=== PATIENT | female | born 1935 | race Two or more races ===

== ENCOUNTER 2016-07-09 15:56 | Observation (INO) | payer MEDICARE, BC ==
[2016-07-09] MEDS ORDERED: SODIUM CHLORIDE 0.9% 1,000 ML IV STA (16:22)
[2016-07-09] MEDS ORDERED: ALBUTEROL NEBULIZED 2.5 MG/3 ML INHALATION STA (16:22)
[2016-07-09] MEDS ORDERED: methylPREDNISolone SOD SUCCI 125 MG/2 ML VIAL IV STA (16:22)
[2016-07-09] MEDS ORDERED: IPRATROPIUM-ALBUTEROL 3 ML NEB INHALATION STA (16:22)
[2016-07-09] MEDS ORDERED: LEVOFLOXACIN 500 MG TAB PO STA (16:24)
--- NOTE | 2016-07-09 16:25 | ED ---
SOB HPI - General Chief Complaint: Shortness of Breath Stated Complaint: Coughing/Dr Sent Time Seen by Provider: 07/09/16 16:15 Source: patient, family Mode of arrival: wheelchair Limitations: no limitations - History of Present Illness Initial Comments: 81 years old female presents with the cough congestion fever coughing up phlegm and runny nose for the last 1 week he got worse this morning she wanted to go see her family doctor in the directed her to come to the ER. She denies any chest pain but she does feel some chest pain when she takes a deep breath she also has a history of COPD she has smoked approximately 50 years ago she quit years ago she also has a history of a spot on her lung she denies any history of heart attacks or any stents or any cardiac intervention at this point review of system is unremarkable otherwise - Related Data Home Medications Medication Instructions Recorded Confirmed Cholecalciferol [Vitamin D3] 2,000 unit PO DAILY 02/25/14 07/09/16 Losartan Potassium [Cozaar] 100 mg PO DAILY 02/25/14 07/09/16 Propylene Glycol/Peg 400/Pf 1 drop BOTH EYES BID PRN 05/07/15 07/09/16 [Systane 0.3-0.4% Eye Drops] Fluticasone Propionate [Flonase 1 - 2 spray EA NOSTRIL DAILY PRN 11/24/15 Allergy Relief] Glimepiride [Amaryl] 1 mg PO DAILY 11/24/15 07/09/16 rOPINIRole HCL [Requip] 0.5 - 1 mg PO HS PRN 07/09/16 07/09/16 Previous Rx's Medication Instructions Recorded traMADol HCL [Ultram] 50 mg PO Q6HR PRN #90 tab 03/01/14 Allergies Allergy/AdvReac Type Severity Reaction Status Date / Time codeine Allergy Unknown Verified 07/09/16 17:14 hydrocodone Allergy Unknown Verified 07/09/16 17:14 hydrocodone bitartrate Allergy Unknown Verified 07/09/16 17:14 [From Vicodin] hydroxyzine Allergy Unknown Verified 07/09/16 17:14 hydroxyzine HCl Allergy Unknown Verified 07/09/16 17:14 [From Vistaril] hydroxyzine pamoate Allergy Unknown Verified 07/09/16 17:14 [From Vistaril] influenza virus vaccine, Allergy Swelling Verified 07/09/16 17:14 specific [Influenza Virus Vacc,Specific] morphine Allergy Unknown Verified 07/09/16 17:14 Penicillins Allergy Rash/Hives Verified 07/09/16 17:14 propoxyphene napsylate Allergy Unknown Verified 07/09/16 17:14 [From Darvocet-N 100] Sulfa (Sulfonamide Allergy Swelling Verified 07/09/16 17:14 Antibiotics) tetanus and diphtheria Allergy Swelling Verified 07/09/16 17:14 toxoids [Tetanus&Diphtheria Toxoid] Review of Systems ROS Statement: Those systems with pertinent positive or pertinent negative responses have been documented in the HPI. ROS Other: All systems not noted in ROS Statement are negative. Past Medical History Past Medical History: COPD, Diabetes Mellitus, Hypertension, Osteoarthritis (OA) Additional Past Medical History / Comment(s): sciatica osteoporosis kidney stones. history of sepsis, nodule on RUL lung History of Any Multi-Drug Resistant Organisms: None Reported Past Surgical History: Back Surgery, Orthopedic Surgery Additional Past Surgical History / Comment(s): Right shoulder and left knee, lt hip-plate and screws surgery, Cataract surgery. part of colon removed related to diverticulitis, ear surgery and ureter stents, bladder suspension Past Anesthesia/Blood Transfusion Reactions: No Reported Reaction Past Psychological History: No Psychological Hx Reported Smoking Status: Former smoker Past Alcohol Use History: None Reported Additional Past Alcohol Use History / Comment(s): STARTED SMOKING AT AGE 13, QUIT 2010 SMOKED 1 PACK PER WEEK. Past Drug Use History: None Reported - Past Family History Sister(s) Family Medical History: Cancer, Renal Disease Additional Family Medical History / Comment(s): sister had dialysis, sister possibly had stomach ca Father Family Medical History: No Reported History Additional Family Medical History / Comment(s): PT WAS ORPHANED DOES'NT KNOW ANY OF PARENTS HX General Exam - General Exam Comments Initial Comments: General: The patient is awake and alert, in mild respiratory distress, GCS is 15. Skin: Skin is warm and dry and no rashes or lesions are noted. Eye: Pupils are equal, round and reactive to light, extra-ocular movements are intact; there is normal conjunctiva bilaterally. Ears, nose, mouth and throat: There are moist mucous membranes and no oral lesions. Neck: The neck is supple, there is no tenderness Cardiovascular: There is a regular rate and rhythm. No murmur, rub or gallop is appreciated. Respiratory: To auscultation bilateral, she is wheezing, crackles at the bases poor air change in general Gastrointestinal: Soft, non-distended, non-tender abdomen without masses or organomegaly noted. There is no rebound or guarding present. Bowel sounds are unremarkable. Back: There is no tenderness to palpation in the midline. There is no obvious deformity. Musculoskeletal: Normal ROM, no tenderness, There is no pedal edema. There is no calf tenderness or swelling. No cords were appreciated. Neurological: CN II-XII intact, Cranial nerves III through XII are intact. There are no obvious motor or sensory deficits. Coordination appears grossly intact. Speech is normal. Psychiatric: Cooperative, appropriate mood & affect, normal judgment. Limitations: no limitations Course Vital Signs 07/09/16 07/09/16 07/09/16 16:01 16:13 16:43 Temperature 100.4 F H 97.8 F Pulse Rate 93 81 83 Respiratory 18 16 Rate Blood Pressure 200/75 170/75 O2 Sat by Pulse 95 96 Oximetry 07/09/16 07/09/16 07/09/16 16:58 17:15 18:15 Temperature Pulse Rate 85 82 78 Respiratory 18 18 Rate Blood Pressure 158/69 158/66 O2 Sat by Pulse 99 98 Oximetry 07/09/16 07/09/16 07/09/16 19:15 20:30 21:00 Temperature Pulse Rate 80 72 89 Respiratory 18 20 20 Rate Blood Pressure 175/64 198/75 175/91 O2 Sat by Pulse 96 99 96 Oximetry She was reassessed S 19 420 she is complaining about pain in the epigastric area pain in the right upper and the left upper quadrant area she stating it seems like cramps in the abdomen abdomen ago and then numb CAT scan her abdomen as well CT CT chest angiogram 30 ordered to rule out the CT abdomen to She has a pleuritic chest pain with the elevated d-dimer and a chest x-ray showing a question of lump there or mass she needed a CT angiogram to rule out PE as well as as well as lung mass but she did not want contrast for her chest CT we did offer her the Solu-Medrol Pepcid and Benadryl prepped but term she did not want to proceed with CT considering her chest pain and all her PE will put in the hospital acquired and heparinize her Dr. Crook is her child care aide will consult him and that she be admitted to Dr. Vizcaino she agrees to that to the meantime she would have IV steroids and inhaled steroids and IV antibiotics Medical Decision Making - Lab Data Result diagrams: 07/09/16 16:27 07/09/16 16:27 Lab Results 07/09/16 07/09/16 07/09/16 Range/Units 16:27 16:27 16:27 WBC 5.5 (3.8-10.6) k/uL RBC 4.54 (3.80-5.40) m/uL Hgb 12.1 (11.4-16.0) gm/dL Hct 37.1 (34.0-46.0) % MCV 81.7 (80.0-100.0) fL MCH 26.7 (25.0-35.0) pg MCHC 32.7 (31.0-37.0) g/dL RDW 14.8 (11.5-15.5) % Plt Count 148 L (150-450) k/uL Neutrophils % 63 % Lymphocytes % 23 % Monocytes % 5 % Eosinophils % 4 % Basophils % 1 % Neutrophils # 3.4 (1.3-7.7) k/uL Lymphocytes # 1.2 (1.0-4.8) k/uL Monocytes # 0.3 (0-1.0) k/uL Eosinophils # 0.2 (0-0.7) k/uL Basophils # 0.1 (0-0.2) k/uL PT (9.0-12.0) sec INR (<1.1) APTT (22.0-30.0) sec D-Dimer (<0.60) mg/L FEU Sodium (137-145) mmol/L Potassium (3.5-5.1) mmol/L Chloride (98-107) mmol/L Carbon Dioxide (22-30) mmol/L Anion Gap mmol/L BUN (7-17) mg/dL Creatinine (0.52-1.04) mg/dL Est GFR (MDRD) Af Amer (>60 ml/min/1.73 sqM) Est GFR (MDRD) Non-Af (>60 ml/min/1.73 sqM) Glucose (74-99) mg/dL Calcium (8.4-10.2) mg/dL Total Bilirubin (0.2-1.3) mg/dL AST (14-36) U/L ALT (9-52) U/L Alkaline Phosphatase (38-126) U/L Total Creatine Kinase 125 (30-135) U/L CK-MB (CK-2) 1.3 (0.0-2.4) ng/mL CK-MB (CK-2) Rel Index 1.0 Troponin I <0.012 (0.000-0.034) ng/mL NT-Pro-B Natriuret Pep pg/mL Total Protein (6.3-8.2) g/dL Albumin (3.5-5.0) g/dL Influenza Type A RNA Not Detected (Not Detectd) Influenza Type B (PCR) Not Detected (Not Detectd) 07/09/16 07/09/16 07/09/16 Range/Units 16:27 16:27 16:27 WBC (3.8-10.6) k/uL RBC (3.80-5.40) m/uL Hgb (11.4-16.0) gm/dL Hct (34.0-46.0) % MCV (80.0-100.0) fL MCH (25.0-35.0) pg MCHC (31.0-37.0) g/dL RDW (11.5-15.5) % Plt Count (150-450) k/uL Neutrophils % % Lymphocytes % % Monocytes % % Eosinophils % % Basophils % % Neutrophils # (1.3-7.7) k/uL Lymphocytes # (1.0-4.8) k/uL Monocytes # (0-1.0) k/uL Eosinophils # (0-0.7) k/uL Basophils # (0-0.2) k/uL PT 10.0 (9.0-12.0) sec INR 1.0 (<1.1) APTT 23.4 (22.0-30.0) sec D-Dimer 0.77 H (<0.60) mg/L FEU Sodium 138 (137-145) mmol/L Potassium 4.1 (3.5-5.1) mmol/L Chloride 105 (98-107) mmol/L Carbon Dioxide 23 (22-30) mmol/L Anion Gap 10 mmol/L BUN 21 H (7-17) mg/dL Creatinine 0.80 (0.52-1.04) mg/dL Est GFR (MDRD) Af Amer >60 (>60 ml/min/1.73 sqM) Est GFR (MDRD) Non-Af >60 (>60 ml/min/1.73 sqM) Glucose 137 H (74-99) mg/dL Calcium 8.7 (8.4-10.2) mg/dL Total Bilirubin 0.5 (0.2-1.3) mg/dL AST 25 (14-36) U/L ALT 28 (9-52) U/L Alkaline Phosphatase 100 (38-126) U/L Total Creatine Kinase (30-135) U/L CK-MB (CK-2) (0.0-2.4) ng/mL CK-MB (CK-2) Rel Index Troponin I (0.000-0.034) ng/mL NT-Pro-B Natriuret Pep 266 pg/mL Total Protein 6.9 (6.3-8.2) g/dL Albumin 3.9 (3.5-5.0) g/dL Influenza Type A RNA (Not Detectd) Influenza Type B (PCR) (Not Detectd) Critical Care Time Total Critical Care Time: 45 Critical Care Time: Planing about shortness of breath or difficulty breathing she knew she had a history of not long, CBC is negative troponin and compress metabolic panel those are negative flu a and B are negative as well d-dimer is elevated she'll be sent for CT angiogram to rule out any PE and same time one evaluated her for now along mass lung mass seems to have enlarged on the plane x-ray films since he has smoked for a long time she be given some neb treatments as well as some antibiotics and some steroids and we will also been watching her blood pressure blood pressure systolic was 200 and she came in Disposition Clinical Impression: Hypertension, Chest pain, Fever, Elevated d-dimer, Lung mass Disposition: ADMITTED IP TO THIS HOSP Condition: Fair
[2016-07-09 16:44] LABS: Basophils # (A) 0.1 k/uL (0-0.2); Basophils % (A) 1 %; CH 26.2; CHCM 32.2; Eosinophils # (A) 0.2 k/uL (0-0.7); Eosinophils % (A) 4 %; HCT 37.1 % (34.0-46.0); HDW 2.67; HGB 12.1 gm/dL (11.4-16.0); Luc # (Auto) 0.21; Luc % (Auto) 4; Lymphocytes # (A) 1.2 k/uL (1.0-4.8); Lymphocytes % (A) 23 %; MCH 26.7 pg (25.0-35.0); MCHC 32.7 g/dL (31.0-37.0); MCV 81.7 fL (80.0-100.0); Mean Platelet Volume 8.6; Monocytes # (A) 0.3 k/uL (0-1.0); Monocytes % (A) 5 %; Neutrophils # (A) 3.4 k/uL (1.3-7.7); Neutrophils % (A) 63 %; RBC 4.54 m/uL (3.80-5.40); RDW 14.8 % (11.5-15.5); WBC 5.5 k/uL (3.8-10.6)
[2016-07-09 16:53] LABS: Partial Thromboplastin Time 23.4 sec (22.0-30.0)
[2016-07-09 16:59] LABS: ALT 28 U/L (9-52); AST 25 U/L (14-36); Alkaline Phosphatase 100 U/L (38-126); Anion Gap 10 mmol/L; Blood Urea Nitrogen 21 mg/dL (7-17); Calcium 8.7 mg/dL (8.4-10.2); Carbon Dioxide 23 mmol/L (22-30); Chloride 105 mmol/L (98-107); Glucose 137 mg/dL (74-99); Non-African American GFR(MDRD) >60 (>60 ml/min/1.73 sqM); Potassium 4.1 mmol/L (3.5-5.1); Sodium 138 mmol/L (137-145); Total Bilirubin 0.5 mg/dL (0.2-1.3); Total Protein 6.9 g/dL (6.3-8.2)
[2016-07-09 17:11] LABS: Creatine Kinase 125 U/L (30-135)
[2016-07-09 17:24] LABS: Creatine Kinase MB 1.3 ng/mL (0.0-2.4); Troponin I <0.012 ng/mL (0.000-0.034)
--- NOTE | 2016-07-09 17:32 | XR ---
EXAMINATION TYPE: XR chest 2V DATE OF EXAM: 07/09/2016 5:12 PM COMPARISON: 01/04/2016 HISTORY: Cough and congestion TECHNIQUE: Frontal and lateral views of the chest are obtained. FINDINGS: There is no heart failure. There is coarsening of pulmonary interstitial markings. There i s a right shoulder prosthesis. There is a irregular 3 cm mass in the right upper lobe. There are no h ilar masses. Thoracic aorta is atheromatous. There are chest leads. IMPRESSION: Right upper lobe mass is increased compared to last exam from 2 cm to 3 cm and suspiciou s for tumor. No heart failure. Pulmonary fibrotic changes.
[2016-07-09] MEDS ORDERED: RX INFO: IV CONTRAST WAS GIVEN 1 EACH MISC MISCELLANE PRN ×2 (18:51→19:42)
[2016-07-09] MEDS ORDERED: traMADol 50 MG TAB PO STA (18:53)
[2016-07-09] MEDS: HYDROmorphone 1 MG/ML 1 ML SYRINGE IVP SCH (20:35)
[2016-07-09] MEDS ORDERED: HEPARIN SODIUM,PORCINE 5,000 UNIT/ML 1 ML VIAL IV ONE (22:04)
[2016-07-09] MEDS ORDERED: ACETAMINOPHEN TAB 325 MG TAB PO PRN (22:04)
[2016-07-09] MEDS ORDERED: NITROGLYCERIN SL TABS 0.4 MG TAB SUBLINGUAL PRN (22:04)
[2016-07-09] MEDS ORDERED: HEPARIN SODIUM,PORCINE/D5W PMX 25,000 UNIT in DEXTROSE/WATER 1 500ML.BAG IV SCH (22:15)
[2016-07-09 23:03] LABS: Creatine Kinase 96 U/L (30-135)
[2016-07-09 23:17] LABS: Troponin I <0.012 ng/mL (0.000-0.034)
[2016-07-10 00:08] VITALS: BMI 37.0
[2016-07-10 04:18] VITALS: RESP 18
[2016-07-10 06:25] LABS: Creatine Kinase 100 U/L (30-135)
[2016-07-10 06:29] LABS: Cholesterol 141 mg/dL (<200); HDL Cholesterol 52 mg/dL (40-60); Triglycerides 39 mg/dL (<150)
[2016-07-10 06:38] LABS: Creatine Kinase MB 1.4 ng/mL (0.0-2.4); Troponin I <0.012 ng/mL (0.000-0.034)
[2016-07-10 08:51] LABS: Glucose,Whole Blood 181 mg/dL (75-99)
[2016-07-10] MEDS ORDERED: ASPIRIN 325 MG TAB PO SCH (09:00)
[2016-07-10] MEDS ORDERED: RX INFO: IV CONTRAST WAS GIVEN 1 EACH MISC MISCELLANE PRN (09:21)
[2016-07-10] MEDS ORDERED: ASPIRIN 81 MG CHEW PO SCH (09:23)
[2016-07-10] MEDS ORDERED: LOSARTAN 50 MG TAB PO SCH (09:29)
[2016-07-10] MEDS ORDERED: amLODIPine 5 MG TAB PO SCH (09:30)
--- NOTE | 2016-07-10 11:43 | CONS ---
DATE OF CONSULTATION: This is an 81-year-old lady with a history of hypertension, type 2 diabetes, osteoarthritis. Past history of smoking, which she quit 6 to 7 years ago. She came into the hospital with complaints of some abdominal discomfort, basically in the left upper quadrant and also in the right upper quadrant. The quality of pain is very atypical. Chest x-ray was performed which showed increase in the right upper lobe that has increased in size. She does not have any further chest pain. She also has an elevated d-dimer as well. She refused to have any CAT scan performed with contrast. She does not have allergy but felt that she may be allergic and therefore she refused CAT scan. There are some fibrotic changes. There is 3 cm right upper lobe mass which has increased and raises the possibility of malignancy. However, her pain in the abdomen is very atypical and this has resolved. Troponin levels are normal. She has significant risk factors in the form of type 2 diabetes and hypertension, past history of smoking, but there is no evidence to suggest any ongoing myocardial ischemia at this time. She is resting comfortably without symptoms. D-dimer is elevated up to 0.77 and she is now on heparin drip. PAST MEDICAL HISTORY: 1. History of chest pain, atypical in November. 2. Type 2 diabetes mellitus. 3. Hypertension. 4. Osteoarthritis. 5. History of lung mass which has increased in size. Patient is status post some orthopedic surgery, cataract surgery and also some back operation and diverticulitis and bowel resection, details are unclear. She has had some bladder suspension surgery as well. EKG reveals sinus mechanism with a right bundle and left anterior vesicular block. Laboratory data revealed the troponins are unremarkable. On examination, blood pressure is 170/80, pulse rate is 70 per minute, regular. HEENT: Unremarkable. Fundus was not examined by me. Neck is supple. There is no JVD. I do not hear a carotid bruit. Heart exam reveals S1, S2 with a soft short ejection systolic murmur at the right base with preserved second heart sound. Lungs are clear with scattered rhonchi. Abdomen is soft. Lower extremities reveal diminished pulses. No edema. Central nervous system grossly within normal limits. EKG revealed a sinus mechanism with a right bundle branch block, left anterior fascicular block. No acute changes. No new findings. Echocardiogram from November of 2015 revealed preserved systolic function, aortic valve sclerosis and no evidence of pulmonary hypertension. IMPRESSION: 1. Atypical chest pain. 2. Probable right upper lobe mass and rule out malignancy. 3. Hypertension. 4. Type 2 diabetes mellitus. 5. History of osteoarthritis. RECOMMENDATIONS: I am recommending a CT angiography to rule out pulmonary embolism and also get a better assessment of the right upper lobe mass. Patient's creatinine is normal and she has no documented allergy with contrast. I will also optimize her blood pressure control by adding Norvasc 5 mg daily to her regimen. No aggressive intervention necessary at this time. Once malignancy issues are resolved, she can have a stress test as an outpatient. I discussed my thoughts in detail with the patient and daughter. Thank you very much for the consult.
[2016-07-10 12:07] LABS: Glucose,Whole Blood 140 mg/dL (75-99)
[2016-07-10 12:31] VITALS: BP 166/71; TEMP 98
--- NOTE | 2016-07-10 13:14 | CT ---
CT CHEST FOR PULMONARY EMBOLISM. EXAMINATION TYPE: CT angio chest DATE OF EXAM: 07/10/2016 1:03 PM INDICATION: Patient has right upper lobe mass and possible PE CT DLP: 432.5 mGycm, Automated exposure control for dose reduction was used. CONTRAST: Patient injected with 100, wasted 43 ml mL of Omnipaque 350. COMPARISON: CT chest 02/15/2016 TECHNIQUE: CT of the chest is performed on a spiral scan at 2 mm thick sections. Study is performed with intravenous contrast timed for evaluation for pulmonary embolism. This will limit additional po rtions of the evaluation. 3-D MIP images reconstructed by the technologist are reviewed on the compu ter in the coronal and sagittal planes. FINDINGS: No persistent filling defects are evident to suggest an acute pulmonary embolism. There is a 1.2 cm lymph node in the right peribronchial region. Some right hilar adenopathy is presen t. The ascending aorta diameter at the level of the main pulmonary artery is 3.6 cm. The main pulmo nary artery diameter at the bifurcation is 2.8 cm. There is a 2.7 x 3.0 cm mass the right upper lobe. This has enlarged from February 2016 measuring 2.1 x 2.2 cm and appears more spiculated at this time. Findings are suspicious for neoplasm. Limited CT section through the upper abdomen. There is a moderate right hydronephrosis. This is an in terval change. IMPRESSIONS: 1. No acute pulmonary embolism. 2. Enlarging right upper lobe mass suspicious for neoplasm. 3. Developing right hydronephrosis
[2016-07-10 13:19] LABS: Hemoglobin A1C 7.8 % (4.2-6.1)
--- NOTE | 2016-07-10 13:27 | P.CNPUL ---
History of Present Illness Consult date: 07/10/16 Requesting physician: Leon Vizcaino Reason for consult: COPD, lung mass Chief complaint: Shortness of breath History of present illness: This is an 81-year-old female evaluated and examined today on the third floor. This patient is well known to our office. This patient came into the emergency room complaints of cough, congestion, fever and runny nose for the last week that had been getting worse. The patient's primary care physician directed her to come to the ER. The patient denies any continued chest pain but does feel some chest pain when she takes a deep breath. The patient also complains of epigastric pain that comes and goes. The patient did present with an elevated d -dimer of 0.77, however she declined to have a CT of her chest or abdomen. Patient did agree to have a chest x-ray and results revealed a right upper lobe mass of 2-3 cm which is suspicious for tumor. Patient was also to have hypertensive urgency while in the emergency room as well. Patient does have a significant history for COPD and has smoked approximately for 50 years and she quit last year. She has a known spot on her lung. Upon examination the patient is resting up in bed using 2 L of oxygen via nasal cannula. She continues to have a chronic cough however she has not been able to bring anything up. Review of Systems Routine point review of systems was completed and is negative unless noted in the HPI Past Medical History Past Medical History: COPD, Diabetes Mellitus, Hypertension, Osteoarthritis (OA) Additional Past Medical History / Comment(s): sciatica osteoporosis kidney stones. history of sepsis, nodule on RUL lung History of Any Multi-Drug Resistant Organisms: None Reported Past Surgical History: Back Surgery, Cholecystectomy, Orthopedic Surgery, Tonsillectomy Additional Past Surgical History / Comment(s): Right shoulder and bi lat knee, lt hip-plate and screws surgery, Cataract surgery. part of colon removed related to diverticulitis, ear surgery and ureter stents, bladder suspension Past Anesthesia/Blood Transfusion Reactions: No Reported Reaction Past Psychological History: No Psychological Hx Reported Smoking Status: Former smoker Past Alcohol Use History: None Reported Additional Past Alcohol Use History / Comment(s): STARTED SMOKING AT AGE 13, QUIT 2010 SMOKED 1 PACK PER WEEK. Past Drug Use History: None Reported - Past Family History Sister(s) Family Medical History: Cancer, Renal Disease Additional Family Medical History / Comment(s): sister had dialysis, sister possibly had stomach ca Father Family Medical History: No Reported History Additional Family Medical History / Comment(s): PT WAS ORPHANED DOES'NT KNOW ANY OF PARENTS HX Medications and Allergies Home Medications Medication Instructions Recorded Confirmed Type Cholecalciferol [Vitamin D3] 2,000 unit PO DAILY 02/25/14 07/09/16 History Losartan Potassium [Cozaar] 100 mg PO DAILY 02/25/14 07/09/16 History Propylene Glycol/Peg 400/Pf 1 drop BOTH EYES BID PRN 05/07/15 07/09/16 History [Systane 0.3-0.4% Eye Drops] Fluticasone Propionate [Flonase 1 - 2 spray EA NOSTRIL DAILY PRN 11/24/15 History Allergy Relief] Glimepiride [Amaryl] 1 mg PO DAILY 11/24/15 07/09/16 History rOPINIRole HCL [Requip] 0.5 - 1 mg PO HS PRN 07/09/16 07/09/16 History Allergies Allergy/AdvReac Type Severity Reaction Status Date / Time codeine Allergy Unknown Verified 07/09/16 17:14 hydrocodone Allergy Unknown Verified 07/09/16 17:14 hydrocodone bitartrate Allergy Unknown Verified 07/09/16 17:14 [From Vicodin] hydroxyzine Allergy Unknown Verified 07/09/16 17:14 hydroxyzine HCl Allergy Unknown Verified 07/09/16 17:14 [From Vistaril] hydroxyzine pamoate Allergy Unknown Verified 07/09/16 17:14 [From Vistaril] influenza virus vaccine, Allergy Swelling Verified 07/09/16 17:14 specific [Influenza Virus Vacc,Specific] morphine Allergy Unknown Verified 07/09/16 17:14 Penicillins Allergy Rash/Hives Verified 07/09/16 17:14 propoxyphene napsylate Allergy Unknown Verified 07/09/16 17:14 [From Darvocet-N 100] Sulfa (Sulfonamide Allergy Swelling Verified 07/09/16 17:14 Antibiotics) tetanus and diphtheria Allergy Swelling Verified 07/09/16 17:14 toxoids [Tetanus&Diphtheria Toxoid] Physical Exam Vitals: Vital Signs Temp Pulse Pulse Resp BP BP BP 07/10/16 08:00 97.6 F 84 18 198/82 07/10/16 04:12 97.7 F 66 18 189/77 07/10/16 04:00 66 18 07/10/16 00:15 190/78 07/10/16 00:00 97.7 F 62 16 210/86 07/09/16 23:03 98.4 F 76 18 170/85 Pulse Ox 07/10/16 08:00 97 07/10/16 04:12 94 L 07/10/16 04:00 07/10/16 00:15 07/10/16 00:00 97 07/09/16 23:03 96 Intake and Output 07/09/16 07/10/16 07/10/16 22:59 06:59 14:59 Other: # Voids 1 1 Weight 74.843 kg GENERAL EXAM: Alert, active, comfortable in no apparent distress. HEAD: Normocephalic. EYES: Normal reaction of pupils, equal size. NOSE: Clear with pink turbinates. THROAT: No erythema or exudates. NECK: No masses, no JVD. CHEST: No chest wall deformity. LUNGS: Equal air entry with some expiratory wheezing and rhonchi noted. Bilateral bases diminished CVS: S1 and S2 normal with no audible mumurs, regular rhythm. ABDOMEN: No hepatosplenomegaly, normal bowel sounds, no guarding or rigidity. EXTREMITIES: No edema noted, pedal pulses palpable. SKIN: No rashes CENTRAL NERVOUS SYSTEM: No focal deficits, tone is normal in all 4 extremities. Results - Laboratory Findings CBC and BMP: 07/09/16 16:27 07/09/16 16:27 PT/INR, D-dimer PT 10.0 sec (9.0-12.0) 07/09/16 16:27 INR 1.0 (<1.1) 07/09/16 16:27 D-Dimer 0.77 mg/L FEU (<0.60) H 07/09/16 16:27 Abnormal lab findings: Abnormal Labs 07/10/16 07/10/16 05:43 08:50 APTT 50.4 H POC Glucose (mg/dL) 181 H - Diagnostic Findings Chest x-ray: report reviewed, image reviewed Assessment and Plan Plan: Assessment Acute exacerbation of COPD Type 2 diabetes mellitus Hypertension Elevated d-dimer History of Pulmonary nodule which has increased in size Osteoarthritis Plan Medications have been reviewed and will be continued as ordered. We agree with cardiology that this patient should be encouraged to undergo a CTA to rule out pulmonary embolism. Continue with supportive care, nebulizer treatments, supplemental oxygen and pulmonary hygiene. We will continue to monitor labs/ results and adjust treatment as necessary. I performed an examination of the patient and discussed their management with the nurse practitioner. I have reviewed the nurse practitioner's note and agree with the documented findings and plan of care.
--- NOTE | 2016-07-10 13:39 | P.HPIM ---
History of Present Illness H&P Date: 07/10/16 Chief Complaint: Shortness of breath 81-year-old female presented on the day of admission to the emergency room with a chief complaint of developing cough coughing up secretions audibly congested.. Patient stated she took a deep breath or chest seemed to hurt. Patient does have a history of COPD smoked greater than 50 years stated that she quit years ago. Subsequently the patient was admitted to the services of the attending with a pulmonology and cardiology consultation requested. Patient 's d-dimer was elevated 2.7 patient underwent a CAT scan of the chest that showed no evidence of a pulmonary emboli. Patient does have a known right upper lobe mass which has been suspicious for a tumor the patient has refused in the past to have it worked up. The attending did discuss with the patient at the bedside about having hematology oncologist take a look and evaluate the right upper lobe mass. Patient refused. The CAT scan of the chest showed that the mass has increased in size from February 2016 and findings are suspicious for a neoplastic. The mass has grown from a 2.7 x 3 cm mass it was 2.2. Again the patient refused to have this evaluated this admission. Patient was anxious to be discharged home Patient was seen by cardiology service. Cardiac enzymes 3 sets were negative. Chest pain was felt to be atypical. The chest x-ray in the emergency room did show an increase in the right upper lobe mass from prior x-ray. Patient continued to refuse to have any workup done at this time. Cardiology indicated that there was no evidence to suggest any ongoing myocardial ischemia at this time. The d-dimer was 0.77. Cardiology indicated that from a cardiac perspective once the malignancy issues are resolved patient have stress test done in the outpatient setting. They added Norvasc 5 mg daily in attempt to optimize her blood pressure. Control Review of Systems Essentially unremarkable except as mentioned in the present illness Past Medical History Past Medical History: COPD, Diabetes Mellitus, Hypertension, Osteoarthritis (OA) Additional Past Medical History / Comment(s): sciatica osteoporosis kidney stones. history of sepsis, nodule on RUL lung History of Any Multi-Drug Resistant Organisms: None Reported Past Surgical History: Back Surgery, Cholecystectomy, Orthopedic Surgery, Tonsillectomy Additional Past Surgical History / Comment(s): Right shoulder and bi lat knee, lt hip-plate and screws surgery, Cataract surgery. part of colon removed related to diverticulitis, ear surgery and ureter stents, bladder suspension Past Anesthesia/Blood Transfusion Reactions: No Reported Reaction Past Psychological History: No Psychological Hx Reported Smoking Status: Former smoker Past Alcohol Use History: None Reported Additional Past Alcohol Use History / Comment(s): STARTED SMOKING AT AGE 13, QUIT 2010 SMOKED 1 PACK PER WEEK. Past Drug Use History: None Reported - Past Family History Sister(s) Family Medical History: Cancer, Renal Disease Additional Family Medical History / Comment(s): sister had dialysis, sister possibly had stomach ca Father Family Medical History: No Reported History Additional Family Medical History / Comment(s): PT WAS ORPHANED DOES'NT KNOW ANY OF PARENTS HX Medications and Allergies Home Medications Medication Instructions Recorded Confirmed Type Cholecalciferol [Vitamin D3] 2,000 unit PO DAILY 02/25/14 07/09/16 History Losartan Potassium [Cozaar] 100 mg PO DAILY 02/25/14 07/09/16 History Propylene Glycol/Peg 400/Pf 1 drop BOTH EYES BID PRN 05/07/15 07/09/16 History [Systane 0.3-0.4% Eye Drops] Fluticasone Propionate [Flonase 1 - 2 spray EA NOSTRIL DAILY PRN 11/24/15 History Allergy Relief] Glimepiride [Amaryl] 1 mg PO DAILY 11/24/15 07/09/16 History rOPINIRole HCL [Requip] 0.5 - 1 mg PO HS PRN 07/09/16 07/09/16 History Allergies Allergy/AdvReac Type Severity Reaction Status Date / Time codeine Allergy Unknown Verified 07/09/16 17:14 hydrocodone Allergy Unknown Verified 07/09/16 17:14 hydrocodone bitartrate Allergy Unknown Verified 07/09/16 17:14 [From Vicodin] hydroxyzine Allergy Unknown Verified 07/09/16 17:14 hydroxyzine HCl Allergy Unknown Verified 07/09/16 17:14 [From Vistaril] hydroxyzine pamoate Allergy Unknown Verified 07/09/16 17:14 [From Vistaril] influenza virus vaccine, Allergy Swelling Verified 07/09/16 17:14 specific [Influenza Virus Vacc,Specific] morphine Allergy Unknown Verified 07/09/16 17:14 Penicillins Allergy Rash/Hives Verified 07/09/16 17:14 propoxyphene napsylate Allergy Unknown Verified 07/09/16 17:14 [From Darvocet-N 100] Sulfa (Sulfonamide Allergy Swelling Verified 07/09/16 17:14 Antibiotics) tetanus and diphtheria Allergy Swelling Verified 07/09/16 17:14 toxoids [Tetanus&Diphtheria Toxoid] Physical Exam Vitals: Vital Signs Temp Pulse Pulse Resp BP BP BP 07/10/16 12:00 98.0 F 75 18 166/71 07/10/16 08:00 97.6 F 84 18 198/82 07/10/16 04:12 97.7 F 66 18 189/77 07/10/16 04:00 66 18 07/10/16 00:15 190/78 07/10/16 00:00 97.7 F 62 16 210/86 07/09/16 23:03 98.4 F 76 18 170/85 Pulse Ox 07/10/16 12:00 95 07/10/16 08:00 97 07/10/16 04:12 94 L 07/10/16 04:00 07/10/16 00:15 07/10/16 00:00 97 07/09/16 23:03 96 Intake and Output 07/09/16 07/10/16 07/10/16 22:59 06:59 14:59 Other: # Voids 1 1 Weight 74.843 kg GENERAL APPEARANCE: 81-year-old patient is alert, oriented 3, in no acute distress. VITAL SIGNS: Reviewed HEENT: Head is normocephalic and atraumatic. Pupils are equal and reactive. The nares are patent. Oropharynx is clear without lesions. NECK: Supple without lymphadenopathy. Traches midline. HEART: S1, S2. Regular rate and rhythm. No murmur noted denying chest pain LUNGS: No crackles or wheezes are heard. Diminished at the bases otherwise adequate air movement no cough noted ABDOMEN: Soft, nontender, nondistended with good bowel sounds. No peritoneal signs. No palpable organomegaly or masses. EXTREMITIES: Normal skin color and turgor. No cyanosis, rash, ulceration, clubbing or edema. Radial pedal pulses are 2/4 bilaterally. NEUROLOGICAL: No focal deficits. Strength and sensation are grossly intact. Results CBC & Chem 7: 07/09/16 16:27 07/09/16 16:27 Labs: Abnormal Lab Results - Last 24 Hours (Table) 07/10/16 07/10/16 07/10/16 Range/Units 05:43 08:50 12:05 APTT 50.4 H (22.0-30.0) sec POC Glucose (mg/dL) 181 H 140 H (75-99) mg/dL Thrombosis Risk Factor Assmnt - Choose All That Apply Each Factor Represents 1 point: Abnormal pulmonary function (COPD) Each Risk Factor Represents 3 Points: Age 75 years or older, History of DVT/PE Thrombosis Risk Factor Assessment Total Risk Factor Score: 7 Thrombosis Risk Factor Assessment Level: High Risk Assessment and Plan Plan: Impression Present on admission shortness of breath suspect due to an acute exacerbation of COPD. Present on admission elevated d-dimer 0.77 CAT scan of the chest showed no evidence of a pulmonary emboli History of nicotine dependency greater than a 50 year history quit within the last 10 years History of osteoarthritis A known Right upper lobe mass increased in size per CAT scan of the chest patient has refused biopsy and workup in the past c omputed tomography scan of the chest and abdomen shows a moderate right hydronephrosis interval change Atypical chest pain with negative cardiac enzymes no evidence of myocardial ischemia Accelerated hypertension present on admission Obesity BMI 37 Plan Continue recommendations by cardiology Norvasc 5 mg daily from a cardiac perspective to be discharged home with see in the outpatient setting when the malignancy issue has been addressed Make appointment for an outpatient urologist to evaluate the right hydronephrosis interval change has seen the past Continue with recommendations by pulmonology Resume home meds as appropriate Set up for home O2 if needed Set up for home nebulizer The above dictated assessment and findings were discussed with dr moreira . Impression and the plan of care have been dictated as directed. Sol Noyola nurse practitioner acting as a scribe for dr moreira
--- NOTE | 2016-07-10 13:48 | P.DS ---
Providers Date of admission: 07/09/16 22:04 Expected date of discharge: 07/10/16 Attending physician: Leon Vizcaino Consults: 07/10/16 09:20 Consult Physician Stat Consulting Provider: Satnam Mireles Consult Reason/Comments: lung mass rul Do you want consulting provider notified?: Yes Primary care physician: Leon Vizcaino [facility] Course: 81-year-old female presented on the day of admission to the emergency room with a chief complaint of developing cough coughing up secretions audibly congested.. Patient stated she took a deep breath or chest seemed to hurt. Patient does have a history of COPD smoked greater than 50 years stated that she quit years ago. Subsequently the patient was admitted to the services of the attending with a pulmonology and cardiology consultation requested. Patient 's d-dimer was elevated 2.7 patient underwent a CAT scan of the chest that showed no evidence of a pulmonary emboli. Patient does have a known right upper lobe mass which has been suspicious for a tumor the patient has refused in the past to have it worked up. The attending did discuss with the patient at the bedside about having hematology oncologist take a look and evaluate the right upper lobe mass. Patient refused. The CAT scan of the chest showed that the mass has increased in size from February 2016 and findings are suspicious for a neoplastic. The mass has grown from a 2.7 x 3 cm mass it was 2.2. Again the patient refused to have this evaluated this admission. Patient was anxious to be discharged home Patient was seen by cardiology service. Cardiac enzymes 3 sets were negative. Chest pain was felt to be atypical. The chest x-ray in the emergency room did show an increase in the right upper lobe mass from prior x-ray. Patient continued to refuse to have any workup done at this time. Cardiology indicated that there was no evidence to suggest any ongoing myocardial ischemia at this time. The d-dimer was 0.77. Cardiology indicated that from a cardiac perspective once the malignancy issues are resolved patient have stress test done in the outpatient setting. They added Norvasc 5 mg daily in attempt to optimize her blood pressure.Control Impression Present on admission shortness of breath suspect due to an acute exacerbation of COPD. Present on admission elevated d-dimer 0.77 CAT scan of the chest showed no evidence of a pulmonary emboli History of nicotine dependency greater than a 50 year history quit within the last 10 years History of osteoarthritis A known Right upper lobe mass increased in size per CAT scan of the chest patient has refused biopsy and workup in the past c omputed tomography scan of the chest and abdomen shows a moderate right hydronephrosis interval change Atypical chest pain with negative cardiac enzymes no evidence of myocardial ischemia Accelerated hypertension present on admission Obesity BMI 37 The above dictated assessment and findings were discussed with dr vizcaino . Impression and the plan of care have been dictated as directed. Sol oNyola nurse practitioner acting as a scribe for dr vizcaino Patient Condition at Discharge: Fair Plan - Discharge Summary New Discharge Prescriptions: Budesonide-Formot 160-4.5 Mcg [Symbicort 160-4.5 Mcg Inhaler] 2 puff INHALATION BID #1 inhaler Ipratropium-Albuterol Nebulize [Duoneb 0.5 mg-3 mg/3 ml Soln] 3 ml INHALATION QID #120 neb amLODIPine [Norvasc] 5 mg PO HS #30 tab Discharge Medication List Cholecalciferol [Vitamin D3] 2,000 unit PO DAILY 02/25/14 [History] Losartan Potassium [Cozaar] 100 mg PO DAILY 02/25/14 [History] traMADol HCL [Ultram] 50 mg PO Q6HR PRN #90 tab 03/01/14 [Rx] Propylene Glycol/Peg 400/Pf [Systane 0.3-0.4% Eye Drops] 1 drop BOTH EYES BID PRN 05/07/15 [History] Fluticasone Propionate [Flonase Allergy Relief] 1 - 2 spray EA NOSTRIL DAILY PRN 11/24/15 [History] Glimepiride [Amaryl] 1 mg PO DAILY 11/24/15 [History] rOPINIRole HCL [Requip] 0.5 - 1 mg PO HS PRN 07/09/16 [History] Budesonide-Formot 160-4.5 Mcg [Symbicort 160-4.5 Mcg Inhaler] 2 puff INHALATION BID #1 inhaler 07/10/16 [Rx] Ipratropium-Albuterol Nebulize [Duoneb 0.5 mg-3 mg/3 ml Soln] 3 ml INHALATION QID #120 neb 07/10/16 [Rx] amLODIPine [Norvasc] 5 mg PO HS #30 tab 07/10/16 [Rx] Follow up Appointment(s)/Referral(s): Leon Vizcaino MD [Primary Care Provider] - 1-2 days Jose Estrella MD [STAFF PHYSICIAN] - 1 Week (Office closed this afternoon (07/10/16 ) and patient will have to call the office to set an appointment) Satnam Mireles MD [STAFF PHYSICIAN] - 1 Week (Office will call to set up an appointment) Benito Lord MD [STAFF PHYSICIAN] - 1 Week Patient Instructions/Handouts: Chest Pain (GEN) Discharge Disposition: HOME SELF-CARE
[2016-07-10] MEDS ORDERED: IPRATROPIUM-ALBUTEROL 3 ML NEB INHALATION STA (14:10)
[2016-07-10 15:31] VITALS: PULSE 80
--- NOTE | 2016-07-10 17:23 | HP ---
DATE OF ADMISSION: 07/09/2016 CHIEF COMPLAINT: Chest pain, cough, congestion. HISTORY OF PRESENT ILLNESS: This is another admission for this 81-year-old white female who has a long-standing history of hypertension, type 2 oea-oqhrllp-ydyzqhtxp diabetes mellitus, COPD and heart failure. She has been coughing up some of late came to the emergency room because of the lung congestion. She thought she had a cold. She has had no fever, chills, cough, hemoptysis, palpitations, et cetera. Chest x-ray in the ER suggested that the right upper lobe mass has gotten a little bit bigger. This was diagnosed number of years ago and she has refused evaluation and treatment. REVIEW OF SYSTEMS: She has had no neurologic problems, problems with vision or hearing, hemoptysis, orthopnea, PND, abdominal pain, hematemesis, melena, hematochezia, colitis, diverticulosis, diverticulitis, hemorrhoids, jaundice, hepatitis, cirrhosis, hematuria, frequency, urgency, diabetes, etc. Past medical history, family history and personal and social histories reveals SHE IS ALLERGIC TO VICODIN, PENICILLIN, DARVOCET, PNEUMOVAX, LASIX, CALCIUM CHANNEL BLOCKERS, VETO INHIBITORS, MORPHINE, FLU VACCINE. She is currently on: 1. Requip 0.5 at bedtime p.r.n. 2. Compazine p.r.n. 3. Ibuprofen 800 mg q.i.d. 4. Amaryl 1 mg once a day. 5. Vitamin D3 2000 units a day. 6. Cozaar 100 mg once a day. 7. Tramadol 50 mg q.6h p.r.n. The remainder of her history is unremarkable. She has had appendectomy and cholecystectomy as well as T&A. She used to smoke but she does not any longer. She has been treated for congestive heart failure in the past. PHYSICAL EXAMINATION: VITAL SIGNS: Blood pressure is 164/66, pulse 100, respirations 16, and temperature 98.3. GENERAL: She appeared to be slightly pale and in no acute distress. SKIN: Skin color is normal. Skin is warm and dry. Lymph nodes are not enlarged. Head, ears, eyes, nose, mouth, and throat were normal. NECK: Neck veins not distended. Thyroid is not enlarged. Chest is clear. Cardiac exam is normal. ABDOMEN: Soft, nontender. EXTREMITIES: Normal. Neurologically, she is intact. She was admitted to the hospital with diagnoses: 1. Bronchitis. 2. History of chronic obstructive pulmonary disease. 3. Right upper lobe lung mass - enlarging. 4. Type II insulin dependent diabetes mellitus. PLAN: 1. Bed rest. 2. IV fluids. 3. Updrafts. 4. Oncology referral.
--- NOTE | 2016-07-10 19:14 | PN ---
DATE OF SERVICE: 07/10/2016 CHIEF COMPLAINT: Chest pain. HISTORY OF PRESENT ILLNESS: This lady is doing fairly well but she still has a little bit of chest congestion. This is probably due to bronchitis. She was told that the mass in the right upper lobe was enlarging and now, she would like to have it evaluated. PHYSICAL EXAMINATION: She has occasional rales and rhonchi bilaterally. CARDIAC: Normal soft, nontender. IMPRESSION: 1. Bronchitis. 2. Bronchopneumonia. 3. Right upper lobe mass - enlarging. 4. Hypertension. 5. History congestive heart failure. 6. Diabetes. PLAN: Continue on current program and have her re-evaluated by oncology.
[2016-07-10] MEDS ORDERED: BUDESONIDE 1 MG/2 ML NEBU INHALATION SCH (20:00)
--- NOTE | 2016-07-14 18:05 | PN ---
DATE OF SERVICE: 07/10/2016 CHIEF COMPLAINT: Cough, congestion, shortness of breath and right upper lobe lung mass. HISTORY OF PRESENT ILLNESS: This lady is doing well and chest is clear and breathing is much improved. She has had to be seen Oncology for the right upper lobe enlarging lung mass. It is planned that they will see her today and that she may be able to discharged if not necessary for any further tests. ( ) The cardiac exam is normal. The abdomen is soft, nontender. IMPRESSION: 1. Bronchitis. 2. Pneumonitis. 3. Diffuse chronic obstructive pulmonary disease. 4. Type 2 sup-yuqyert-hwfhpaxhz diabetes mellitus. 5. History congestive heart failure. 6. Right upper lobe lung mass. PLAN: Await recommendations from Oncology and she can probably go home later today and this will be arranged by the nurse practitioner.
== END 2016-07-10 15:45 | disposition home or self-care (01) ==
LOC: EC 15:56 → 3OBS 22:04
PROVIDERS: ADMIT Family Medicine; ATTEND Family Medicine
DX: J44.1 Chronic obstructive pulmonary disease with (acute) exacerbation (principal); J44.0 Chronic obstructive pulmonary disease with (acute) lower respiratory infection; J18.0 Bronchopneumonia, unspecified organism; E11.9 Type 2 diabetes mellitus without complications; E66.9 Obesity, unspecified; Z68.37 Body mass index [BMI] 37.0-37.9, adult; I11.0 Hypertensive heart disease with heart failure; I16.0 Hypertensive urgency; I35.8 Other nonrheumatic aortic valve disorders; I50.9 Heart failure, unspecified; N13.30 Unspecified hydronephrosis; Z79.84 Long term (current) use of oral hypoglycemic drugs; Z79.899 Other long term (current) drug therapy; Z87.442 Personal history of urinary calculi; Z87.891 Personal history of nicotine dependence; Z79.51 Long term (current) use of inhaled steroids; Z88.5 Allergy status to narcotic agent; Z88.0 Allergy status to penicillin; Z88.2 Allergy status to sulfonamides; Z88.7 Allergy status to serum and vaccine; Z88.8 Allergy status to other drugs, medicaments and biological substances; R91.8 Other nonspecific abnormal finding of lung field; M19.90 Unspecified osteoarthritis, unspecified site
CPT/HCPCS: 96365 ×2; 96375 ×2; 96376 ×2; 96361 ×7; 99291 ×2; 36415; 94640 ×2; 93005; 85379; 83880; 80061; 80053; 83036; 82550 ×2; 82553 ×2; 84484 ×2; 85025; 85610; 85730 ×2; 87502; 71020; 71275; G0378 ×2; J1644 ×2; J2930; Q9967; J0696; 96366; 96367

== ENCOUNTER → 2016-08-17 | Outpatient (CLI) | payer MEDICARE, BC ==
--- NOTE | 2016-08-19 22:23 | PE ---
EXAMINATION TYPE: PET CT fusion skull to thigh DATE OF EXAM: 08/17/2016 4:14 PM COMPARISON: CTA chest July 10, [address] HISTORY: Solitary pulmonary nodule TECHNIQUE: Following the intravenous administration of 14.18 mCi of F-18 FDG, whole body images are performed from the skull base to the midthigh. Images are reviewed on the computer in the coronal, a xial, and sagittal planes. Reconstructed rotating images are created on independent workstation and reviewed on the computer. A localization and attenuation correction CT is performed in conjunction with the PET scan. SCAN: Initial Scan FINDINGS: SKULL BASE AND NECK: No suspicious hypermetabolic uptake is seen in the neck. Symmetric uptake at [place] fabian of vocal cords is felt to reflect product of phonation. CHEST, MEDIASTINUM, AND HILAR REGION: Enlarging right upper lobe mass is redemonstrated measuring 3.3 x 2.6 cm on current study axial image 69, max SUV is 27.28. There is redemonstration of additional subcentimeter parenchymal nodules throughout the lungs bilater ally without abnormal hypermetabolic uptake, for reference two nodules are noted in the right lung on axial image 85. These can be followed. There are prominent subcentimeter right hilar lymph nodes near axial image 76, for reference 9 x 9 mm lymph node is seen max SUV is 3.85. Similar lymph node with mild hypermetabolic uptake right pericar inal region on axial image 74 is noted. There is diffuse increased uptake surrounding right shoulder prosthesis, inflammatory or infectious p rocess cannot be excluded. Clinical correlation advised. ABDOMEN AND PELVIS: No adrenal masses are noted. No suspicious hypermetabolic uptake is seen. OSSEOUS STRUCTURES: No suspicious hypermetabolic uptake is seen in the osseous structures. OTHER CT: There is air-fluid level in left maxillary sinus, correlate for sinusitis. There is densely calcified plaque at right carotid bulb. More moderate calcified plaque is seen at le ft carotid bulb. Advise carotid ultrasound follow-up. There is moderate calcified atherosclerotic change of aorta extending into pelvic branch vessels. There is cardiomegaly with coronary artery calcification present. Somewhat small appearing liver is noted. No splenomegaly is seen. Surgical clips near gastroesophagea l junction are seen causing streak artifact. There is fat replaced atrophy of the pancreas. There is some cortical thinning in both kidneys. There are several left-sided renal calculi with 1 cm lower pole calculus on the left on axial image 139 noted. Central calcifications are more likely vas cular in etiology versus renal calculi. There is fat-containing ventral wall hernia in the midline of the lower abdomen on axial image 161. T here is additional fat-containing hernia just right of midline on axial image 167. Uterus is surgically absent. Low lying bladder is present. There are scattered colonic diverticula most pronounced in the left and sigmoid colon. Osseous structures are demineralized. There is artifact from left proximal femur surgery through heal ed fracture. There are laminectomy defects and spinous process resection in the lumbar spine. There i s multilevel vertebroplasty present. IMPRESSION: 1. Abnormal hypermetabolic uptake correlates with enlarging right upper lung mass worrisome for neopl asm, some suspicious borderline lymph nodes right hilar and paracarinal region are noted. These obvi ous will make a higher stage if definitively positive.
== END | disposition home or self-care (01) ==
LOC: RADPETMAIN 13:56
PROVIDERS: ATTEND Internal Medicine Hematology & Oncology
DX: R91.8 Other nonspecific abnormal finding of lung field (principal); R91.1 Solitary pulmonary nodule; E11.9 Type 2 diabetes mellitus without complications
CPT/HCPCS: 78815; A9552

== ENCOUNTER 2016-12-16 08:35 | Emergency (ER) | payer MEDICARE, BC ==
[2016-12-16] MEDS ORDERED: ACETAMINOPHEN TAB 500 MG TAB PO STA (08:54)
[2016-12-16 08:55] LABS: Glucose,Whole Blood 166 mg/dL (75-99)
--- NOTE | 2016-12-16 09:13 | XR ---
Lumbar spine HISTORY: Low back pain 3 views of the lumbar spine Correlation to prior exam 11/06/2012 Multilevel vertebroplasty changes are again noted, some extrusion of material is noted anterior to th e L5 vertebral body as on prior exam, multilevel compression deformities as on prior exam at L1, L3, L4 and L5. Bone mineralization is reduced. There is a spinal curvature. Surgical clips present at the upper abdomen. There are dense vascular calcifications. Suspect left-sided nephrolithiasis. Multilev el spondylosis is present. There is some loss of disc height and intervertebral levels. Sclerosis pre sent in the posterior elements. Postop change noted to the left hip. IMPRESSION: Osteoporosis, osteoporotic compression fractures status post vertebroplasty at multiple l evels. Left-sided nephrolithiasis.
--- NOTE | 2016-12-16 09:26 | ED ---
General Adult HPI - General Chief complaint: Back Pain/Injury Stated complaint: BACK PAIN, HYPERGLYCEMIA Time Seen by Provider: 12/16/16 08:44 Source: patient, RN notes reviewed Mode of arrival: wheelchair Limitations: no limitations - History of Present Illness Initial comments: 81-year-old female presents to the emergency department with a chief complaint of back pain. Patient states that today she woke up with back pain. Patient states she did not take any medication for this could she does not like pills. Patient states that it radiates up the back. Patient denies any change to bowel or bladder habits or nausea vomiting. Patient states that it just hurts in her back. Family states that she does have lung cancer which she is choosing not to treat at this time. They were concerned due to the fact she continued to complain of the back pain so they thought that she should be evaluated.Patient denies any recent fever, chills, shortness of breath, chest pain, abdominal pain, nausea vomiting, numbness or tingling, dysuria or hematuria, constipation or diarrhea, headaches or visual changes, or any other current symptoms. - Related Data Home Medications Medication Instructions Recorded Confirmed Cholecalciferol [Vitamin D3] 2,000 unit PO DAILY 02/25/14 12/16/16 Losartan Potassium [Cozaar] 100 mg PO DAILY 02/25/14 12/16/16 Glimepiride [Amaryl] 1 mg PO DAILY 11/24/15 12/16/16 Furosemide [Lasix] 20 mg PO DAILY 12/16/16 12/16/16 Previous Rx's Medication Instructions Recorded Ciprofloxacin HCl [Cipro] 500 mg PO Q12HR #14 tablet 12/16/16 predniSONE 50 mg PO DAILY #5 tab 12/16/16 Allergies Allergy/AdvReac Type Severity Reaction Status Date / Time codeine Allergy Unknown Verified 12/16/16 09:44 hydrocodone Allergy Unknown Verified 12/16/16 09:44 hydrocodone bitartrate Allergy Unknown Verified 12/16/16 09:44 [From Vicodin] hydroxyzine Allergy Unknown Verified 12/16/16 09:44 hydroxyzine HCl Allergy Unknown Verified 12/16/16 09:44 [From Vistaril] hydroxyzine pamoate Allergy Unknown Verified 12/16/16 09:44 [From Vistaril] influenza virus vaccine, Allergy Swelling Verified 12/16/16 09:44 specific [Influenza Virus Vacc,Specific] morphine Allergy Unknown Verified 12/16/16 09:44 Penicillins Allergy Rash/Hives Verified 12/16/16 09:44 propoxyphene napsylate Allergy Unknown Verified 12/16/16 09:44 [From Darvocet-N 100] Sulfa (Sulfonamide Allergy Swelling Verified 12/16/16 09:44 Antibiotics) tetanus and diphtheria Allergy Swelling Verified 12/16/16 09:44 toxoids [Tetanus&Diphtheria Toxoid] Review of Systems ROS Statement: Those systems with pertinent positive or pertinent negative responses have been documented in the HPI. ROS Other: All systems not noted in ROS Statement are negative. Past Medical History Past Medical History: COPD, Diabetes Mellitus, Hypertension, Osteoarthritis (OA) Additional Past Medical History / Comment(s): sciatica osteoporosis kidney stones. history of sepsis, nodule on RUL lung History of Any Multi-Drug Resistant Organisms: None Reported Past Surgical History: Back Surgery, Cholecystectomy, Orthopedic Surgery, Tonsillectomy Additional Past Surgical History / Comment(s): Right shoulder and bi lat knee, lt hip-plate and screws surgery, Cataract surgery. part of colon removed related to diverticulitis, ear surgery and ureter stents, bladder suspension Past Anesthesia/Blood Transfusion Reactions: No Reported Reaction Past Psychological History: No Psychological Hx Reported Smoking Status: Former smoker Past Alcohol Use History: None Reported Past Drug Use History: None Reported - Past Family History Sister(s) Family Medical History: Cancer, Renal Disease Additional Family Medical History / Comment(s): sister had dialysis, sister possibly had stomach ca Father Family Medical History: No Reported History Additional Family Medical History / Comment(s): PT WAS ORPHANED DOES'NT KNOW ANY OF PARENTS HX General Exam - General Exam Comments Initial Comments: General: The patient is awake and alert, in no distress, and does not appear acutely ill. Eye: Pupils are equal, round and reactive to light, extra-ocular movements are intact; there is normal conjunctiva bilaterally. No signs of icterus. Ears, nose, mouth and throat: There are moist mucous membranes and no oral lesions. Neck: The neck is supple, there is no tenderness. Cardiovascular: There is a regular rate and rhythm. No murmur, rub or gallop is appreciated. Respiratory: Lungs are clear to auscultation, respirations are non-labored, breath sounds are equal. No wheezes, stridor, rales, or rhonchi. Gastrointestinal: Soft, non-distended, non-tender abdomen without masses or organomegaly noted. There is no rebound or guarding present. No CVA tenderness. Bowel sounds are unremarkable. Back: There is mild tenderness to palpation in the midline in the lower lumbar. There is no obvious deformity. No rashes noted. Musculoskeletal: Normal ROM, no tenderness, There is no pedal edema. There is no calf tenderness or swelling. Sensation intact. Pulses equal bilaterally 2+. Neurological: CN II-XII intact, There are no obvious motor or sensory deficits. Coordination appears grossly intact. Speech is normal. Skin: Skin is warm and dry and no rashes or lesions are noted. Psychiatric: Cooperative, appropriate mood & affect, normal judgment. Limitations: no limitations Course Vital Signs 12/16/16 08:36 Temperature 98.3 F Pulse Rate 89 Respiratory 20 Rate Blood Pressure 151/67 O2 Sat by Pulse 96 Oximetry Medical Decision Making - Medical Decision Making 81-year-old female presents emergency department with chief complaint of back pain.at this time CAT scan was reviewed. We did discuss the findings of this. As well as urinalysis. Patient does appear to have some chronic back changes that are causing most likely the back pain. This time there is no neurological deficit. This and we discussed taking Tylenol for the pain due to the fact patient does have interactions with. Medications as well as take the antibioticfor the UTI. We did discuss close follow-up with orthopedics. We did discuss return the patient family's questions. They stated they understood and the on agreement plan. All questions have been answered. They will be discharged. - Lab Data Lab Results 12/16/16 12/16/16 Range/Units 08:42 09:52 POC Glucose (mg/dL) 166 H (75-99) mg/dL POC Glu Advertisement Compositor ID Yesica Quiroz Urine Color Yellow Urine Appearance Cloudy H (Clear) Urine pH 6.5 (5.0-8.0) Ur Specific [place] 1.012 (1.001-1.035) Urine Protein Trace H (Negative) Urine Glucose (UA) Negative (Negative) Urine Ketones Negative (Negative) Urine Blood Moderate H (Negative) Urine Nitrite Negative (Negative) Urine Bilirubin Negative (Negative) Urine Urobilinogen 2.0 (<2.0) mg/dL Ur Leukocyte Esterase Large H (Negative) Urine RBC 37 H (0-5) /hpf Urine WBC 40 H (0-5) /hpf Urine WBC Clumps Few H (None) /hpf Ur Squamous Epith Cells 1 (0-4) /hpf Urine Bacteria Moderate H (None) /hpf Urine Mucus Rare H (None) /hpf - Radiology Data Radiology results: report reviewed, image reviewed Disposition Clinical Impression: Lumbar disc herniation, Degenerative disc disease, UTI (urinary tract infection ) Disposition: HOME SELF-CARE Condition: Stable Instructions: Chronic Back Pain (ED), Urinary Tract Infection in Women (ED) Additional Instructions: Please use medication as discussed. Please follow up with family doctor if symptoms have not improved over the next two days. Please return to the emergency room if your symptoms increase or worsen or for any other concerns. Prescriptions: Ciprofloxacin HCl [Cipro] 500 mg PO Q12HR #14 tablet predniSONE 50 mg PO DAILY #5 tab Referrals: Leon Vizcaino MD [Primary Care Provider] - 1-2 days Time of Disposition: 10:31
--- NOTE | 2016-12-16 10:09 | CT ---
EXAMINATION TYPE: CT lumbar spine wo con DATE OF EXAM: 12/16/2016 9:38 AM COMPARISON: 12/16/2016 lumbar spine radiographs and CT abdomen pelvis dated 11/24/2015. PET CT dated HISTORY: Patient complains of low back pain. Patient has history of 5 prior back surgeries. None re cent. CT DLP: 1037.7 mGycm Automated exposure control for dose reduction was used. Unenhanced CT of the lumbar spine was performed. Bone and soft tissue window settings are submitted as well as coronal and sagittal reconstructions. There is diffuse osseous demineralization, deeming evaluation for lytic lesions limited. Multiple lev el vertebral augmentation has been performed at L1, L3, L4, and L5. Extensive facet arthropathy is pr esent at L4-L5 and L5-S1 and to a lesser degree throughout the visualized thoracolumbar spine. Interv ertebral disc desiccation is seen at multiple levels within the lumbar spine. There is retropulsion o f the inferior endplate of L1 posteriorly into the spinal canal creating moderate spinal canal stenos is. Retropulsion measures 5 mm. Degenerative endplate changes seen of L2 with a concave deformity alt leonarda the anterior and posterior superior endplate maintained vertebral body height. There is a focal stenosis of the tortuous abdominal aorta at the level of L2 as there is a sharp curv ature at this level. Area of stenosis measures 1.4 cm and the terminal aorta proximal to this measure s 2.3 cm. Moderate circumferential atherosclerosis is seen of the abdominal aorta and its branches in cluding renal ostia and distal renal arteries. 1.1 cm left upper pole renal cyst and ill-defined midpole posterior renal cyst are appreciated. Large left renal sinus calculus is located within the renal pelvis measuring 1.4 cm additional 1.5 cm left lower pole renal cyst is seen as well as nonobstructing 5 mm calculus. Right renal sinus cyst is als o seen at the inferior pole. Few sigmoid diverticula are incidentally noted. There is pancreatic atrophy. No periaortic adenopathy is seen. L1-L2: There is intervertebral disc desiccation, right lateral disc herniation, and retropulsion of t he posterior inferior endplate of L1 into the spinal canal creates moderate spinal canal stenosis bes t seen on the sagittal image. Severe right neural foraminal narrowing and moderate left neural forami nal narrowing are present. Facet arthropathy and ligamentum flavum buckling are also noted. L2-L3: Intervertebral disc desiccation, broad-based disc bulge that is right eccentric, facet arthrop athy, and ligamentum flavum buckling are present resulting in moderate right and mild left neural for aminal narrowing. No spinal canal stenosis. L3-L4: Facet arthropathy, ligamentum flavum buckling, and broad-based disc bulge. Mild to moderate bi lateral neural foraminal narrowing and mild spinal canal stenosis. L4-L5: Large broad-based disc bulge is seen. Postsurgical changes of laminectomy defect and spinous p rocess resection are noted. Facet arthropathy is present. There is resultant moderate bilateral neura l foraminal narrowing. L5-S1: Broad-based disc bulge is present as well as facet arthropathy creating moderate bilateral chace ral foraminal narrowing. IMPRESSION: 1. Right lateral disc herniation at L1-L2 creating severe right neural foraminal narrowing and modera te left neural foraminal narrowing in combination with facet arthropathy. Additionally retropulsion o f the inferior end plate of L1 creates mild spinal canal stenosis at this level. 2. Multilevel degenerative disc disease and advanced hypertrophic facet changes creating variable mul tilevel neural foraminal narrowing (mild to severe). 3. Postsurgical changes of the lumbar spine including laminectomy defects, spinous process resection, and multilevel vertebral augmentation. 4. Bilateral renal cysts/renal sinus cysts, and left renal calculi measuring up to 1.4 cm. 5. Moderate abdominal aorta calcific atheromatous changes and area of focal stenosis measuring 1.4 cm at the level of L2. 6. Sigmoid diverticulosis.
[2016-12-16 10:14] LABS: Appearance,Urine Cloudy (Clear); Bacteria,Urine Moderate /hpf; Bilirubin,Urine Negative (Negative); Glucose,Urine (UA) Negative (Negative); Ketones,Urine Negative (Negative); Leukocyte Esterase,Urine Large (Negative); Mucus,Urine Rare /hpf; Nitrite,Urine Negative (Negative); PH, Urine 6.5 (5.0-8.0); Particle Count 6770; Protein,Urine Trace (Negative); RBC,Urine 37 /hpf (0-5); Specific Gravity,Urine 1.012 (1.001-1.035); Squamous Epithelial Cell,Urine 1 /hpf (0-4); UA Billing (MACRO vs. MICRO) MICRO; WBC,Urine 40 /hpf (0-5)
[2016-12-16 10:48] VITALS: BP 160/76; PULSE 68; RESP 16; TEMP 97.8
== END 2016-12-16 10:47 | disposition home or self-care (01) ==
LOC: EC 08:35
DX: M51.26 Other intervertebral disc displacement, lumbar region (principal); M51.36 Other intervertebral disc degeneration, lumbar region; N39.0 Urinary tract infection, site not specified; I10 Essential (primary) hypertension; E11.9 Type 2 diabetes mellitus without complications; Z87.891 Personal history of nicotine dependence; Z98.890 Other specified postprocedural states; Z88.5 Allergy status to narcotic agent; Z88.7 Allergy status to serum and vaccine; Z88.0 Allergy status to penicillin; Z88.2 Allergy status to sulfonamides; Z88.8 Allergy status to other drugs, medicaments and biological substances; Z79.84 Long term (current) use of oral hypoglycemic drugs; Z79.899 Other long term (current) drug therapy
CPT/HCPCS: 36415; 72100; 72131; 81001; 99284

== ENCOUNTER 2017-01-09 08:13 | Observation (INO) | payer MEDICARE, BC ==
[2017-01-09] MEDS ORDERED: ASPIRIN 81 MG PO STA (08:29)
[2017-01-09] MEDS ORDERED: ONDANSETRON 4 MG/2 ML VIAL IVP STA (08:29)
--- NOTE | 2017-01-09 08:41 | ED ---
General Adult HPI - General Chief complaint: Back Pain/Injury Stated complaint: BACK PAIN Time Seen by Provider: 01/09/17 08:23 Source: patient, RN notes reviewed Mode of arrival: wheelchair Limitations: no limitations - History of Present Illness Initial comments: This is an 81-year-old female presents emergency Department with daughter chief complaint of upper back pain, left-sided rib pain. Patient states the pain started this morning. There are + patient is demented and has some baseline confusion though she did complain of pain only this morning. Patient states that she does not have any increased shortness of breath or palpitations. She does admit to some nausea but states that nothing seems to make this pain feel any better in her back. She denies any rashes that radiate around her chest wall region. Patient has currently been treated for urinary tract infection on antibiotics. Patient denies any headache, dizziness, neck pain. Patient was reportedly diagnosed with lung cancer last year and has not gone under any treatment as she has refused treatment. Patient denies any known injury to her upper back region. She has had multiple surgeries on her low back - Related Data Home Medications Medication Instructions Recorded Confirmed Cholecalciferol [Vitamin D3] 2,000 unit PO DAILY 02/25/14 01/09/17 Losartan Potassium [Cozaar] 100 mg PO DAILY 02/25/14 01/09/17 Glimepiride [Amaryl] 1 mg PO [id number] 11/24/15 01/09/17 Ciprofloxacin HCl [Cipro] 500 mg PO Q12HR 01/09/17 01/09/17 Allergies Allergy/AdvReac Type Severity Reaction Status Date / Time codeine Allergy Unknown Verified 01/09/17 08:36 hydrocodone Allergy Unknown Verified 01/09/17 08:36 hydrocodone bitartrate Allergy Unknown Verified 01/09/17 08:36 [From Vicodin] hydroxyzine Allergy Unknown Verified 01/09/17 08:36 hydroxyzine HCl Allergy Unknown Verified 01/09/17 08:36 [From Vistaril] hydroxyzine pamoate Allergy Unknown Verified 01/09/17 08:36 [From Vistaril] influenza virus vaccine, Allergy Swelling Verified 01/09/17 08:36 specific [Influenza Virus Vacc,Specific] morphine Allergy Unknown Verified 01/09/17 08:36 Penicillins Allergy Rash/Hives Verified 01/09/17 08:36 propoxyphene napsylate Allergy Unknown Verified 01/09/17 08:36 [From Darvocet-N 100] Sulfa (Sulfonamide Allergy Swelling Verified 01/09/17 08:36 Antibiotics) tetanus and diphtheria Allergy Swelling Verified 01/09/17 08:36 toxoids [Tetanus&Diphtheria Toxoid] Review of Systems ROS Statement: Those systems with pertinent positive or pertinent negative responses have been documented in the HPI. ROS Other: All systems not noted in ROS Statement are negative. Past Medical History Past Medical History: COPD, Diabetes Mellitus, Hypertension, Osteoarthritis (OA) Additional Past Medical History / Comment(s): sciatica osteoporosis kidney stones. history of sepsis, nodule on RUL lung History of Any Multi-Drug Resistant Organisms: None Reported Past Surgical History: Back Surgery, Bowel Resection, Cholecystectomy, Ear Surgery, Orthopedic Surgery, Tonsillectomy Additional Past Surgical History / Comment(s): Right shoulder and bi lat knee, lt hip-plate and screws surgery, Cataract surgery. part of colon removed related to diverticulitis, ear surgery and ureter stents, bladder suspension Past Anesthesia/Blood Transfusion Reactions: No Reported Reaction Past Psychological History: No Psychological Hx Reported Smoking Status: Former smoker Past Alcohol Use History: None Reported Past Drug Use History: None Reported - Past Family History Sister(s) Family Medical History: Cancer, Renal Disease Additional Family Medical History / Comment(s): sister had dialysis, sister possibly had stomach ca Father Family Medical History: No Reported History Additional Family Medical History / Comment(s): PT WAS ORPHANED DOES'NT KNOW ANY OF PARENTS HX General Exam Limitations: no limitations General appearance: alert, in no apparent distress Head exam: Present: atraumatic, normocephalic, normal inspection Eye exam: Present: normal appearance, PERRL, EOMI. Absent: scleral icterus, conjunctival injection, periorbital swelling ENT exam: Present: normal exam, normal oropharynx, mucous membranes moist Neck exam: Present: normal inspection, full ROM. Absent: tenderness, meningismus, lymphadenopathy Respiratory exam: Present: normal lung sounds bilaterally, other (No rashes noted). Absent: respiratory distress, wheezes, rales, rhonchi, stridor, chest wall tenderness Cardiovascular Exam: Present: regular rate, normal rhythm, normal heart sounds. Absent: systolic murmur, diastolic murmur, rubs, gallop, clicks GI/Abdominal exam: Present: soft, normal bowel sounds. Absent: distended, tenderness, guarding, rebound, rigid Back exam: Absent: CVA tenderness (R), CVA tenderness (L) Neurological exam: Present: alert, oriented X3, CN II-XII intact, reflexes normal. Absent: motor sensory deficit Skin exam: Present: warm, dry, intact, normal color. Absent: rash Course Vital Signs 01/09/17 01/09/17 01/09/17 08:15 09:18 10:00 Temperature 99.1 F Pulse Rate 85 66 58 L Respiratory 16 18 18 Rate Blood Pressure 147/67 140/63 153/100 O2 Sat by Pulse 94 L 98 98 Oximetry EKG Findings - EKG Comments: EKG Findings:: EKG performed at 8:39 normal sinus rhythm right bundle balaji block, left anterior fascicular block with a rate of 74. VT interval 166 QRS duration 138 QT/QTc is 422/468 Medical Decision Making - Lab Data Result diagrams: 01/09/17 08:45 01/09/17 08:45 Lab Results 01/09/17 01/09/17 01/09/17 Range/Units 08:45 08:45 08:45 WBC 6.5 (3.8-10.6) k/uL RBC 4.56 (3.80-5.40) m/uL Hgb 11.8 (11.4-16.0) gm/dL Hct 37.7 (34.0-46.0) % MCV 82.6 (80.0-100.0) fL MCH 25.9 (25.0-35.0) pg MCHC 31.3 (31.0-37.0) g/dL RDW 14.3 (11.5-15.5) % Plt Count 193 (150-450) k/uL Neutrophils % 77 % Lymphocytes % 14 % Monocytes % 4 % Eosinophils % 3 % Basophils % 1 % Neutrophils # 5.0 (1.3-7.7) k/uL Lymphocytes # 0.9 L (1.0-4.8) k/uL Monocytes # 0.3 (0-1.0) k/uL Eosinophils # 0.2 (0-0.7) k/uL Basophils # 0.0 (0-0.2) k/uL Hypochromasia Moderate PT (9.0-12.0) sec INR (<1.2) APTT (22.0-30.0) sec D-Dimer (<0.60) mg/L FEU Sodium 135 L (137-145) mmol/L Potassium 4.2 (3.5-5.1) mmol/L Chloride 104 (98-107) mmol/L Carbon Dioxide 21 L (22-30) mmol/L Anion Gap 10 mmol/L BUN 19 H (7-17) mg/dL Creatinine 0.72 (0.52-1.04) mg/dL Est GFR (MDRD) Af Amer >60 (>60 ml/min/1.73 sqM) Est GFR (MDRD) Non-Af >60 (>60 ml/min/1.73 sqM) Glucose 173 H (74-99) mg/dL Calcium 8.6 (8.4-10.2) mg/dL Magnesium 1.8 (1.6-2.3) mg/dL Total Bilirubin 0.5 (0.2-1.3) mg/dL AST 22 (14-36) U/L ALT 29 (9-52) U/L Alkaline Phosphatase 95 (38-126) U/L Total Creatine Kinase 56 (30-135) U/L CK-MB (CK-2) 1.0 (0.0-2.4) ng/mL CK-MB (CK-2) Rel Index 1.8 Troponin I <0.012 (0.000-0.034) ng/mL Total Protein 6.4 (6.3-8.2) g/dL Albumin 3.6 (3.5-5.0) g/dL Amylase <30 L (30-110) U/L Lipase 70 (23-300) U/L 01/09/17 Range/Units 08:45 WBC (3.8-10.6) k/uL RBC (3.80-5.40) m/uL Hgb (11.4-16.0) gm/dL Hct (34.0-46.0) % MCV (80.0-100.0) fL MCH (25.0-35.0) pg MCHC (31.0-37.0) g/dL RDW (11.5-15.5) % Plt Count (150-450) k/uL Neutrophils % % Lymphocytes % % Monocytes % % Eosinophils % % Basophils % % Neutrophils # (1.3-7.7) k/uL Lymphocytes # (1.0-4.8) k/uL Monocytes # (0-1.0) k/uL Eosinophils # (0-0.7) k/uL Basophils # (0-0.2) k/uL Hypochromasia PT 10.3 (9.0-12.0) sec INR 1.0 (<1.2) APTT 25.5 (22.0-30.0) sec D-Dimer 0.96 H (<0.60) mg/L FEU Sodium (137-145) mmol/L Potassium (3.5-5.1) mmol/L Chloride (98-107) mmol/L Carbon Dioxide (22-30) mmol/L Anion Gap mmol/L BUN (7-17) mg/dL Creatinine (0.52-1.04) mg/dL Est GFR (MDRD) Af Amer (>60 ml/min/1.73 sqM) Est GFR (MDRD) Non-Af (>60 ml/min/1.73 sqM) Glucose (74-99) mg/dL Calcium (8.4-10.2) mg/dL Magnesium (1.6-2.3) mg/dL Total Bilirubin (0.2-1.3) mg/dL AST (14-36) U/L ALT (9-52) U/L Alkaline Phosphatase (38-126) U/L Total Creatine Kinase (30-135) U/L CK-MB (CK-2) (0.0-2.4) ng/mL CK-MB (CK-2) Rel Index Troponin I (0.000-0.034) ng/mL Total Protein (6.3-8.2) g/dL Albumin (3.5-5.0) g/dL Amylase (30-110) U/L Lipase (23-300) U/L Disposition Clinical Impression: Chest pain, Back pain, Lung cancer Disposition: ADMITTED IP TO THIS [facility] Condition: Fair Referrals: Leon Vizcaino MD [Primary Care Provider] - 1-2 days
[2017-01-09 09:02] LABS: Basophils % (A) 1 %; CH 25.2; CHCM 30.5; Eosinophils # (A) 0.2 k/uL (0-0.7); Eosinophils % (A) 3 %; HCT 37.7 % (34.0-46.0); HDW 2.56; HGB 11.8 gm/dL (11.4-16.0); Hypochromasia Moderate; Luc # (Auto) 0.15; Luc % (Auto) 2; Lymphocytes # (A) 0.9 k/uL (1.0-4.8); Lymphocytes % (A) 14 %; MCH 25.9 pg (25.0-35.0); MCHC 31.3 g/dL (31.0-37.0); MCV 82.6 fL (80.0-100.0); Mean Platelet Volume 7.8; Monocytes # (A) 0.3 k/uL (0-1.0); Monocytes % (A) 4 %; Neutrophils % (A) 77 %; RBC 4.56 m/uL (3.80-5.40); RDW 14.3 % (11.5-15.5); WBC 6.5 k/uL (3.8-10.6); WBC (Perox) 6.56
--- NOTE | 2017-01-09 09:05 | XR ---
EXAMINATION TYPE: XR chest 2V DATE OF EXAM: 01/09/2017 COMPARISON: 07/10/2016 and 07/09/2016 HISTORY: Lung cancer TECHNIQUE: Frontal and lateral views of the chest are obtained. FINDINGS: There is redemonstration of a right upper lung pulmonary mass measuring at least 4.6 cm, ab utting the pleural surface and radiographically enlarged from the prior. Lateral pleural reaction is now noted, new from the prior exam. No new focal consolidation, pleural effusion or pneumothorax is s een. Cardia mediastinal silhouette is within normal limits. Reverse right total arthroplasty and exte nsive degenerative changes of the left glenohumeral joint are seen. Changes at the gastroesophageal j unction and vertebroplasty are similarly noted. IMPRESSION: Radiographic increase in size of the known right lung mass with new pleural reaction. No focal consolidation, pleural effusion or pneumothorax.
--- NOTE | 2017-01-09 09:08 | XR ---
EXAMINATION TYPE: XR thoracic spine 2V DATE OF EXAM: 01/09/2017 CLINICAL HISTORY: Lung cancer with back pain TECHNIQUE: Frontal, lateral, and swimmer's view of thoracic spine are obtained. COMPARISON: None. FINDINGS: Thoracic spine show satisfactory alignment without evidence of acute fracture or dislocatio n. Multiple vertebral augmentation is seen with slight superior endplate vertebral body height loss above the most superior vertebral augmentation, unchanged from the prior CT of 07/10/2016. There is gen eralized osseous demineralization. This limits evaluation for lytic lesions and trabecular bony detai l. Visualized portions of the lungs are discussed in the chest radiographic dictation the same day an d new pleural reaction is again of note, which could relate to the patient's pain. IMPRESSION: 1. Redemonstration of vertebral augmentation within the lower thoracic and upper lumbar spine as well as superior endplate compression deformity of a lower thoracic vertebrae, unchanged from the prior. Generalized osseous demineralization limits evaluation for lytic lesions. 2. Redemonstration of the right upper lobe mass described on the chest radiograph of the same day wit h new pleural reaction that could create chest pain.
[2017-01-09 09:13] LABS: ALT 29 U/L (9-52); AST 22 U/L (14-36); Alkaline Phosphatase 95 U/L (38-126); Amylase <30 U/L (30-110); Anion Gap 10 mmol/L; Blood Urea Nitrogen 19 mg/dL (7-17); Calcium 8.6 mg/dL (8.4-10.2); Carbon Dioxide 21 mmol/L (22-30); Chloride 104 mmol/L (98-107); Glucose 173 mg/dL (74-99); Magnesium 1.8 mg/dL (1.6-2.3); Non-African American GFR(MDRD) >60 (>60 ml/min/1.73 sqM); Partial Thromboplastin Time 25.5 sec (22.0-30.0); Potassium 4.2 mmol/L (3.5-5.1); Prothrombin Time 10.3 sec (9.0-12.0); Sodium 135 mmol/L (137-145); Total Bilirubin 0.5 mg/dL (0.2-1.3); Total Protein 6.4 g/dL (6.3-8.2)
[2017-01-09] MEDS ORDERED: RX INFO: IV CONTRAST WAS GIVEN 1 EACH MISC MISCELLANE PRN (09:16)
[2017-01-09 09:33] LABS: Creatine Kinase 56 U/L (30-135)
[2017-01-09 09:46] LABS: Troponin I <0.012 ng/mL (0.000-0.034)
--- NOTE | 2017-01-09 10:09 | CT ---
EXAMINATION TYPE: CT chest angio for PE DATE OF EXAM: 01/09/2017 COMPARISON: PET/CT dated 08/17/[address] thorax dated 07/10/2016. HISTORY: Patient poor historian. Pain CT DLP: 322.2 mGycm. Automated Exposure Control for Dose Reduction was Utilized. CONTRAST: CTA scan of the thorax is performed with IV Contrast, patient injected with 100 mL of Omnipaque 350, pulmonary embolism protocol. MIP Images are created on CT scanner and reviewed. FINDINGS: LUNGS: There is interval enlargement of the right upper lobe pulmonary mass now measuring at least 4. 1 x 4.7 cm and now abutting the right pleural surface creating reactive pleural thickening. This prev iously measured 3.3 x 2.6 cm on the PET/CT dated 08/17/2016. Again there are numerous subcentimeter ri ght sided pulmonary nodules with the second 2 largest also minimally increased in size since the prio r examinations now measuring 1.1 and 0.7 cm on series 5 image 52. Moderate bibasilar subsegmental dep endent atelectasis partially obscures visualization of the lungs and limits evaluation for subcentime ter pulmonary nodules. Left upper lobe and lingular pulmonary nodules are evident which appears simil ar in size to the prior exam seen on series 5 image 45, 52, 58, and 67. MEDIASTINUM: Conglomeration of lymph nodes within the right hilum measures at least 2.9 x 1.6 cm and surrounds the pulmonary vasculature. An adjacent right hilar lymph node near the precarinal space has enlarged from the prior exam previously measuring 1.2 cm in short axis and now measuring 1.3 cm in s hort axis. Three-vessel coronary artery calcifications and valvular calcifications are noted as well as calcific atheromatous changes of the thoracic aorta. There is satisfactory enhancement of the pulm onary artery and its branches, there is no CT evidence for pulmonary embolism. OTHER: Postsurgical changes are seen at the gastroesophageal junction. Hepatic contour is somewhat no dular suggestive of underlying hepatic cirrhosis with diffuse hypoattenuation of the hepatic parenchy ma that may relate to hepatocellular disease and/or component of hepatic steatosis. Multilevel degene rative changes of the thoracic spine create bridging anteriorly. No new suspicious osseous lesions ar e identified. Rib cortices appear intact. IMPRESSION: 1. No evidence of pulmonary embolism. 2. Interval enlargement of the right upper lobe pulmonary mass and multiple bilateral pulmonary nodul es in comparison to the prior exams with new abutment of the index mass with the pleural surface crea ting pleural reaction, which could contribute to the patient's pain. No distinct erosive changes, per iosteal reaction, or lytic lesions are seen of the adjacent ribs. 3. Interval worsening of the mediastinal adenopathy with conglomeration in the right hilum measuring 2.9 x 1.6 cm surrounding pulmonary vasculature without stenosis. 4. Hepatic contour is minimally nodular suggesting underlying hepatocellular disease and possible cir rhosis. Degree of hepatic steatosis is also suggested.
[2017-01-09] MEDS ORDERED: NITROGLYCERIN SL TABS 0.4 MG TAB SUBLINGUAL PRN (10:30)
[2017-01-09] MEDS ORDERED: HEPARIN SODIUM,PORCINE/D5W PMX 25,000 UNIT in DEXTROSE/WATER 1 500ML.BAG IV SCH (10:30)
[2017-01-09] MEDS ORDERED: HEPARIN SODIUM,PORCINE 5,000 UNIT/ML 1 ML VIAL IV ONE (10:30)
[2017-01-09 16:17] LABS: Creatine Kinase 49 U/L (30-135)
[2017-01-09 16:29] LABS: Creatine Kinase MB 0.8 ng/mL (0.0-2.4); Troponin I <0.012 ng/mL (0.000-0.034)
[2017-01-09 17:28] LABS: Glucose,Whole Blood 145 mg/dL (75-99)
[2017-01-09] MEDS ORDERED: HEPARIN SODIUM,PORCINE 5,000 UNIT/ML 1 ML VIAL IV STA (18:54)
--- NOTE | 2017-01-09 19:05 | HP ---
HISTORY AND PHYSICAL CHIEF COMPLAINT: Chest pain. HISTORY OF PRESENT ILLNESS: This is another admission for this 81-year-old, white female. She has a long-standing history of hypertension, COPD and diabetes which has been under good control. She recently has been identified as having pulmonary nodules which are highly suspicious for neoplasm. However, she has refused any attempts at further diagnostic testing or treatment. She started to have some left anterior chest discomfort today and was brought to the emergency room. Her enzymes are normal. She is not diaphoretic. She is admitted for observation. REVIEW OF SYSTEMS: She has had no neurologic problems, change in vision or the hearing, hemoptysis, sputum production, palpitations, orthopnea, PND, syncope, etc. She has had no abdominal pain, nausea, vomiting, diarrhea, melena, jaundice, renal disease, etc. Past medical history, family history, personal and social histories reveal that she is ALLERGIC TO VICODIN, TD, PENICILLIN, CODEINE, LATEX, CALCIUM CHANNEL BLOCKERS, VETO INHIBITORS, MORPHINE, FLU VACCINE, SULFA, VISTARIL. MEDICATIONS: 1. Amaryl 1 mg once a day. 2. Vitamin D3. 3. Cozaar 100 mg once a day. 4. Tramadol 50 mg q.6h p.r.n. The remainder of her history is unremarkable. She used to smoke, but stopped a long time ago. PHYSICAL EXAMINATION: Blood pressure 140/86, pulse 84, respirations 20, and she is afebrile. In general, she appeared to be in no acute distress. Skin color is normal. Skin is warm and dry. Lymph nodes not enlarged. Head, ears, eyes, nose, mouth and throat were normal. Neck veins not distended. Thyroid is not enlarged. Chest is clear. Cardiac exam is normal. Abdomen is soft and nontender. Extremities are normal and neurologically she is intact. IMPRESSION: 1. Chest pain. 2. History of congestive heart failure. 3. Type 2 diabetes. 4. 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 PLAN: 1. Bed rest. 2. IV fluids. 3. Serial EKGs and enzymes. MMODL / IJN: [id number] /
[2017-01-09] MEDS ORDERED: ACETAMINOPHEN TAB 325 MG TAB PO PRN (20:01)
[2017-01-09] MEDS: CIPROFLOXACIN HCL 500 MG TAB PO SCH (20:06)
[2017-01-09 20:41] LABS: Glucose,Whole Blood 181 mg/dL (75-99)
[2017-01-09 21:46] LABS: Creatine Kinase 47 U/L (30-135)
[2017-01-09 21:55] LABS: Troponin I <0.012 ng/mL (0.000-0.034)
[2017-01-10 02:11] LABS: Cholesterol 121 mg/dL (<200); HDL Cholesterol 46 mg/dL (40-60)
[2017-01-10 07:24] LABS: Glucose,Whole Blood 148 mg/dL (75-99)
[2017-01-10] MEDS: LOSARTAN 50 MG TAB PO SCH (09:32)
[2017-01-10] MEDS: GLIMEPIRIDE 1 MG TAB PO SCH (09:32)
[2017-01-10] MEDS: ASPIRIN 325 MG TAB PO SCH (09:32)
[2017-01-10] MEDS: CIPROFLOXACIN HCL 500 MG TAB PO SCH ×2 (09:32→20:05)
[2017-01-10] MEDS ORDERED: RX INFO: IV CONTRAST WAS GIVEN 1 EACH MISC MISCELLANE PRN (11:00)
[2017-01-10 11:57] LABS: Glucose,Whole Blood 149 mg/dL (75-99)
--- NOTE | 2017-01-10 16:02 | CT ---
EXAMINATION TYPE: CT shoulder LT wo con DATE OF EXAM: 01/10/2017 COMPARISON: PET/CT August 17, 2016 HISTORY: Left shoulder pain. Suspect mets. CT DLP: 475.00 mGycm Automated exposure control for dose reduction was used. CT scan left shoulder is performed without co ntrast. Three-D reconstructed images are created on independent workstation and reviewed. FINDINGS: Osseous structures are demineralized. No acute fracture or dislocation in the left shoulder is seen. There is high riding left humeral head suggesting chronic rotator cuff tear. There is advanced atroph y of the supraspinatus muscle bulk which correlates with chronic tear. There is moderate to severe tami int space loss with moderate acetabular spurring at glenohumeral joint. There is marked joint space l oss and subchondral cystic change at acromioclavicular joint. There is some spurring from superior la teral aspect of the acromion. No suspicious lytic or destructive lesion is identified. Muscle bulk in left shoulder is felt within normal limits. No large effusion is present. Emphysematous change in the visualized left lung is noted. Coronary artery calcification is present w hich is noted marker for coronary artery disease. Moderate to severe calcified plaque bilateral carot id bulbs is present and may warrant further workup with carotid ultrasound to further evaluate and ch aracterize. IMPRESSION: DEMINERALIZATION AND DEGENERATIVE CHANGES DETAILED ABOVE. NO EVIDENCE OF METASTATIC MALIGNANCY TO LEFT SHOULDER.
[2017-01-10] MEDS: traMADol 50 MG TAB PO SCH ×3 (16:47→21:46)
[2017-01-10 17:32] LABS: Glucose,Whole Blood 110 mg/dL (75-99)
--- NOTE | 2017-01-10 17:51 | PN ---
PROGRESS NOTE CHIEF COMPLAINT: Chest pain. HISTORY OF PRESENT ILLNESS: This lady is complaining of a lot of shoulder pain. It is in her left shoulder and left scapular area. She has had no fever, cough, etc. PHYSICAL EXAM: She has no tenderness or any abnormality in the shoulder or left scapula. Chest is clear. Cardiac exam is normal. Abdomen is soft, nontender. IMPRESSION: 1. Chest pain. 2. Carcinoma of the lung. 3. New onset of pain in the left shoulder girdle. PLAN: 1. Increase the pain medication. 2. CT scan of the left shoulder and scapula rule out metastatic neoplasm. MMODL / IJN: [id number] /
[2017-01-10 21:01] LABS: Glucose,Whole Blood 193 mg/dL (75-99)
[2017-01-10 21:15] VITALS: RESP 18
[2017-01-11 07:02] LABS: Glucose,Whole Blood 136 mg/dL (75-99)
[2017-01-11 08:25] VITALS: BP 130/60; PULSE 76; TEMP 98.7
[2017-01-11] MEDS: traMADol 50 MG TAB PO SCH ×2 (08:50→13:51)
[2017-01-11] MEDS: ASPIRIN 325 MG TAB PO SCH (08:50)
[2017-01-11] MEDS: CIPROFLOXACIN HCL 500 MG TAB PO SCH (08:50)
[2017-01-11] MEDS: GLIMEPIRIDE 1 MG TAB PO SCH (08:51)
[2017-01-11] MEDS: LOSARTAN 50 MG TAB PO SCH (08:51)
--- NOTE | 2017-01-11 12:34 | DS ---
DISCHARGE SUMMARY CHIEF COMPLAINT: Chest and back pain. HISTORY OF PRESENT ILLNESS AND PHYSICAL EXAM: Details of this lady's history and physical can be found in the initial workup. LABORATORY STUDIES: While she in the hospital, she had laboratory studies, details which can be found in the laboratory section of her chart. COURSE IN HOSPITAL: After admission, she was placed in bedrest, started on intravenous fluids and she had serial EKGs and enzymes and they were normal. She was complaining of a lot of a lot of pain in the left shoulder girdle area. CT is obtained and did not demonstrate any neoplasm. She is doing well on the morning of the seventh and it was felt that she could go home. She will go home on her usual diet and activity and medication. She will be seen in the office several days. FINAL DIAGNOSIS: 1. Chest pain. 2. History of congestive heart failure. 3. History of chronic obstructive pulmonary disease. 4. Type 2 diabetes mellitus. 5. Carcinoma of the lung. 6. Left shoulder pain, etiology unknown. OPERATIONS: None. CONSULTATION: None. She is improved. MMODL / IJN: [id number] /
== END 2017-01-11 13:45 | disposition home health service (06) ==
LOC: EC 08:13 → 3OBS 11:49
PROVIDERS: ADMIT Family Medicine; ATTEND Family Medicine
DX: R07.89 Other chest pain (principal); M54.9 Dorsalgia, unspecified; I11.0 Hypertensive heart disease with heart failure; I50.9 Heart failure, unspecified; J44.9 Chronic obstructive pulmonary disease, unspecified; E11.9 Type 2 diabetes mellitus without complications; C34.90 Malignant neoplasm of unspecified part of unspecified bronchus or lung; M25.512 Pain in left shoulder; Z87.891 Personal history of nicotine dependence; R07.81 Pleurodynia; F03.90 Unspecified dementia, unspecified severity, without behavioral disturbance, psychotic disturbance, mood disturbance, and anxiety; R11.0 Nausea; M19.90 Unspecified osteoarthritis, unspecified site; M81.0 Age-related osteoporosis without current pathological fracture; Z79.84 Long term (current) use of oral hypoglycemic drugs; Z79.899 Other long term (current) drug therapy; Z88.5 Allergy status to narcotic agent; Z88.8 Allergy status to other drugs, medicaments and biological substances; Z88.0 Allergy status to penicillin; Z88.2 Allergy status to sulfonamides; Z88.7 Allergy status to serum and vaccine; Z87.442 Personal history of urinary calculi
CPT/HCPCS: 99285; 96375 ×2; 96376 ×3; 96365; 96366 ×2; 36415; 94760; 93005; 85379; 80061; 80053; 82150; 82550; 82553; 83690; 83735; 84484; 85025; 85610; 85730 ×2; 72070; 71020; 71275; 73200; G0378 ×3; J1644 ×2; Q9967; J2405

== ENCOUNTER 2017-10-17 16:41 | Inpatient (IN) | payer MEDICARE, BC ==
[2017-10-17] MEDS ORDERED: SODIUM CHLORIDE 0.9% 500 ML IV STA (17:17)
--- NOTE | 2017-10-17 17:22 | ED ---
Fall HPI <Oliverio Wu - Last Filed: 10/17/17 19:34> - General Source: patient Mode of arrival: EMS <Marry Barron - Last Filed: 10/18/17 03:44> - General Chief Complaint: Fall Stated Complaint: fall Time Seen by Provider: 10/17/17 17:04 - History of Present Illness Initial Comments: 82-year-old female patient presents the emergency department today for evaluation after expressing a fall. Daughter reports the patient got up from her chair to go to the restroom was walking with her walker. States that she suddenly fell backwards with initial impact to her buttocks and then fell back striking her head on the floor. Daughter states when she got to her was yelling her name she was not waking up. States that she did shake her and then she came to. States that she then called EMS. Upon EMS arrival patient's blood sugar was 312. Patient does have a history of dementia and does not recall the fall. Daughter reports it is not unusual for her to have difficulty with her memory. Patient also has a recent diagnosis of lung cancer. Patient denies any current pain. She denies any headache, blurred vision, double vision , neck pain, or back pain. Initially she was complaining of pain to the right shoulder but denies any pain at this time. Patient denies any chest pain, shortness of breath, dizziness, weakness, abdominal pain, nausea, vomiting, or difficulties with bowel movements or urination. (Marry Barron) - Related Data Home Medications Medication Instructions Recorded Confirmed Losartan Potassium [Cozaar] 100 mg PO DAILY PRN 02/25/14 10/17/17 Glimepiride [Amaryl] 1 mg PO DAILY PRN 11/24/15 10/17/17 Allergies Allergy/AdvReac Type Severity Reaction Status Date / Time codeine Allergy Unknown Verified 10/17/17 17:11 hydrocodone Allergy Unknown Verified 10/17/17 17:11 hydrocodone bitartrate Allergy Unknown Verified 10/17/17 17:11 [From Vicodin] hydroxyzine Allergy Unknown Verified 10/17/17 17:11 hydroxyzine HCl Allergy Unknown Verified 10/17/17 17:11 [From Vistaril] hydroxyzine pamoate Allergy Unknown Verified 10/17/17 17:11 [From Vistaril] influenza virus vaccine, Allergy Swelling Verified 10/17/17 17:11 specific [Influenza Virus Vacc,Specific] morphine Allergy Unknown Verified 10/17/17 17:11 Penicillins Allergy Rash/Hives Verified 10/17/17 17:11 propoxyphene napsylate Allergy Unknown Verified 10/17/17 17:11 [From Darvocet-N 100] Sulfa (Sulfonamide Allergy Swelling Verified 10/17/17 17:11 Antibiotics) tetanus and diphtheria Allergy Swelling Verified 10/17/17 17:11 toxoids [Tetanus&Diphtheria Toxoid] Review of Systems ROS Other: All systems not noted in ROS Statement are negative. <Oliverio Wu - Last Filed: 10/17/17 19:34> ROS Other: All systems not noted in ROS Statement are negative. <Marry Barron - Last Filed: 10/18/17 03:44> ROS Statement: Those systems with pertinent positive or pertinent negative responses have been documented in the HPI. Past Medical History Past Medical History: COPD, Dementia, Diabetes Mellitus, Hypertension, Osteoarthritis (OA), Pneumonia, Renal Disease Additional Past Medical History / Comment(s): Current UTI on 2nd round of antibiotics, R upper lobe mass-pt never wanted it worked up, NIDDM type II, nephritis with sepsis, nephrolithiasis, past UTIs, diverticular disease, chronic low back pain, past vertebral fractures, sciatica, osteoporosis, History of Any Multi-Drug Resistant Organisms: None Reported Past Surgical History: Appendectomy, Back Surgery, Bladder Surgery, Bowel Resection, Cholecystectomy, Ear Surgery, Hysterectomy, Joint Replacement, Orthopedic Surgery, Tonsillectomy Additional Past Surgical History / Comment(s): Right total shoulder, low back fusions x2, total L knee arthroplasty, R knee patella fracture with surgical repair, L hip fracture with surgical repair-plate/screws, colonoscopies, bowel resection r/t diverticular dx, bladder suspension, paratid gland surgery, bilateral cataract removals, bilateral ureteral stents. Past Anesthesia/Blood Transfusion Reactions: No Reported Reaction Past Psychological History: No Psychological Hx Reported Smoking Status: Former smoker - Past Family History Sister(s) Family Medical History: Cancer, Renal Disease Additional Family Medical History / Comment(s): sister had dialysis, sister possibly had stomach ca Father Family Medical History: No Reported History Additional Family Medical History / Comment(s): PT WAS ORPHANED DOES'NT KNOW ANY OF PARENTS HX <Marry Barron M - Last Filed: 10/18/17 03:44> General Exam Limitations: no limitations General appearance: alert, in no apparent distress, other (This is a well- developed, well-nourished elderly female patient in no acute distress. Vital signs upon presentation are temperature 98.7F, pulse 101, respirations 16, blood pressure 149/63, pulse ox 97% on room air.) Eye exam: Present: normal appearance, PERRL, EOMI. Absent: scleral icterus, conjunctival injection, periorbital swelling ENT exam: Present: normal exam, normal oropharynx, mucous membranes moist Neck exam: Present: normal inspection, full ROM, other (Nontender, no step-off, no deformity to firm midline palpation of the posterior cervical spine. Full range of motion without pain or limitation.). Absent: tenderness, meningismus, lymphadenopathy Respiratory exam: Present: normal lung sounds bilaterally. Absent: respiratory distress, wheezes, rales, rhonchi, stridor Cardiovascular Exam: Present: regular rate, normal rhythm, normal heart sounds. Absent: systolic murmur, diastolic murmur, rubs, gallop, clicks GI/Abdominal exam: Present: soft, normal bowel sounds. Absent: distended, tenderness, guarding, rebound, rigid Extremities exam: Present: full ROM, normal capillary refill, other (Patient has a small area of ecchymosis noted to the right proximal forearm. No bony tenderness noted. Inspection of the right shoulder is normal, there is no bony tenderness. Patient has full range of motion of the right shoulder without pain or limitation. Patient does have some left hip tenderness. Inspection of the left hip is normal. There is no evidence of deformity. Full range of motion without pain or limitation. Skin to the extremities is pink, warm, and dry. Cap refill is less than 3 seconds. Radial pulses are 2+ and equal bilaterally. Pedal and posttibial pulses are 2+ and equal bilaterally.). Absent: normal inspection, tenderness, pedal edema, joint swelling, calf tenderness Back exam: Present: normal inspection, other (Nontender, no step-off, no deformity to firm midline palpation of the thoracic and lumbar vertebrae. Full range of motion without pain or limitation.). Absent: vertebral tenderness Neurological exam: Present: alert, oriented X3, CN II-XII intact Psychiatric exam: Present: normal affect, normal mood Skin exam: Present: warm, dry, intact, normal color. Absent: rash <Marry Barron - Last Filed: 10/18/17 03:44> Vital Signs 10/17/17 10/17/17 10/17/17 16:46 19:20 20:15 Temperature 98.7 F 98.7 F Pulse Rate 101 H 90 93 Respiratory 16 16 18 Rate Blood Pressure 149/63 138/71 145/63 O2 Sat by Pulse 97 97 97 Oximetry Medical Decision Making - Lab Data Result diagrams: 10/17/17 17:29 10/17/17 17:29 <Oliverio Wu - Last Filed: 10/17/17 19:34> - Lab Data Result diagrams: 10/17/17 17:29 10/17/17 17:29 - EKG Data -: EKG Interpreted by Me - Radiology Data Radiology results: report reviewed, image reviewed <Marry Barron - Last Filed: 10/18/17 03:44> - Medical Decision Making Provider Attestation PA attestation: I personally saw and examined the patient. I have reviewed and agree with the PA's findings, including all diagnostic interpretations and treatment plans as written unless ohterwise stated. I was present for gaxiola portions of any procedures performed and the inclusive time noted for any critical care statement. (Oliverio Wu) 82-year-old female patient presented to the emergency department today for evaluation after experiencing a fall at home. Description of the incident by daughter did does sound like patient may have had a syncopal episode resulting in the fall. Physical examination does reveal some left hip tenderness, but is otherwise unremarkable. Patient is neurologically intact. She is confused however this is her baseline with a history of dementia. Labs reviewed and did reveal low hemoglobin at 9.8 and urinary tract infection. Chest x-ray was reviewed and did show a mass in the right upper lobe which is not new for the patient, she is not receiving treatment for this. Patient will be admitted to the hospital and treated for urinary tract infection and further evaluated for the syncopal event. She'll be admitted to Dr. Lopez. We will start Levaquin in light of her allergies. (Marry Barron) - Lab Data Lab Results 10/17/17 10/17/17 10/17/17 Range/Units 17:29 17:29 17:29 WBC 7.3 (3.8-10.6) k/uL RBC 4.15 (3.80-5.40) m/uL Hgb 9.8 L (11.4-16.0) gm/dL Hct 31.2 L (34.0-46.0) % MCV 75.1 L (80.0-100.0) fL MCH 23.6 L (25.0-35.0) pg MCHC 31.4 (31.0-37.0) g/dL RDW 16.2 H (11.5-15.5) % Plt Count 274 (150-450) k/uL Neutrophils % 80 % Lymphocytes % 11 % Monocytes % 5 % Eosinophils % 2 % Basophils % 1 % Neutrophils # 5.9 (1.3-7.7) k/uL Lymphocytes # 0.8 L (1.0-4.8) k/uL Monocytes # 0.4 (0-1.0) k/uL Eosinophils # 0.1 (0-0.7) k/uL Basophils # 0.0 (0-0.2) k/uL Hypochromasia Slight Anisocytosis Slight Microcytosis Slight PT (9.0-12.0) sec INR (<1.2) APTT (22.0-30.0) sec Sodium 133 L (137-145) mmol/L Potassium 3.4 L (3.5-5.1) mmol/L Chloride 100 (98-107) mmol/L Carbon Dioxide 25 (22-30) mmol/L Anion Gap 8 mmol/L BUN 12 (7-17) mg/dL Creatinine 0.50 L (0.52-1.04) mg/dL Est GFR (CKD-EPI)AfAm >90 (>60 ml/min/1.73 sqM) Est GFR (CKD-EPI)NonAf 90 (>60 ml/min/1.73 sqM) Glucose 236 H (74-99) mg/dL Calcium 7.6 L (8.4-10.2) mg/dL Magnesium 1.9 (1.6-2.3) mg/dL Total Bilirubin 0.2 (0.2-1.3) mg/dL AST 15 (14-36) U/L ALT 23 (9-52) U/L Alkaline Phosphatase 91 (38-126) U/L Total Creatine Kinase <20 L (30-135) U/L CK-MB (CK-2) <0.2 (0.0-2.4) ng/mL CK-MB (CK-2) Rel Index Troponin I <0.012 (0.000-0.034) ng/mL Total Protein 5.1 L (6.3-8.2) g/dL Albumin 2.5 L (3.5-5.0) g/dL Urine Color Urine Appearance (Clear) Urine pH (5.0-8.0) Ur Specific [place] (1.001-1.035) Urine Protein (Negative) Urine Glucose (UA) (Negative) Urine Ketones (Negative) Urine Blood (Negative) Urine Nitrite (Negative) Urine Bilirubin (Negative) Urine Urobilinogen (<2.0) mg/dL Ur Leukocyte Esterase (Negative) Urine RBC (0-5) /hpf Urine WBC (0-5) /hpf Urine WBC Clumps (None) /hpf Ur Squamous Epith Cells (0-4) /hpf Urine Bacteria (None) /hpf Hyaline Casts (0-2) /lpf Urine Mucus (None) /hpf 10/17/17 10/17/17 Range/Units 17:29 17:54 WBC (3.8-10.6) k/uL RBC (3.80-5.40) m/uL Hgb (11.4-16.0) gm/dL Hct (34.0-46.0) % MCV (80.0-100.0) fL MCH (25.0-35.0) pg MCHC (31.0-37.0) g/dL RDW (11.5-15.5) % Plt Count (150-450) k/uL Neutrophils % % Lymphocytes % % Monocytes % % Eosinophils % % Basophils % % Neutrophils # (1.3-7.7) k/uL Lymphocytes # (1.0-4.8) k/uL Monocytes # (0-1.0) k/uL Eosinophils # (0-0.7) k/uL Basophils # (0-0.2) k/uL Hypochromasia Anisocytosis Microcytosis PT 10.4 (9.0-12.0) sec INR 1.1 (<1.2) APTT 23.2 (22.0-30.0) sec Sodium (137-145) mmol/L Potassium (3.5-5.1) mmol/L Chloride (98-107) mmol/L Carbon Dioxide (22-30) mmol/L Anion Gap mmol/L BUN (7-17) mg/dL Creatinine (0.52-1.04) mg/dL Est GFR (CKD-EPI)AfAm (>60 ml/min/1.73 sqM) Est GFR (CKD-EPI)NonAf (>60 ml/min/1.73 sqM) Glucose (74-99) mg/dL Calcium (8.4-10.2) mg/dL Magnesium (1.6-2.3) mg/dL Total Bilirubin (0.2-1.3) mg/dL AST (14-36) U/L ALT (9-52) U/L Alkaline Phosphatase (38-126) U/L Total Creatine Kinase (30-135) U/L CK-MB (CK-2) (0.0-2.4) ng/mL CK-MB (CK-2) Rel Index Troponin I (0.000-0.034) ng/mL Total Protein (6.3-8.2) g/dL Albumin (3.5-5.0) g/dL Urine Color Yellow Urine Appearance Cloudy H (Clear) Urine pH 6.5 (5.0-8.0) Ur Specific [place] 1.011 (1.001-1.035) Urine Protein Trace H (Negative) Urine Glucose (UA) 3+ H (Negative) Urine Ketones Negative (Negative) Urine Blood Moderate H (Negative) Urine Nitrite Positive H (Negative) Urine Bilirubin Negative (Negative) Urine Urobilinogen 2.0 (<2.0) mg/dL Ur Leukocyte Esterase Large H (Negative) Urine RBC 28 H (0-5) /hpf Urine WBC >182 H (0-5) /hpf Urine WBC Clumps Few H (None) /hpf Ur Squamous Epith Cells 2 (0-4) /hpf Urine Bacteria Many H (None) /hpf Hyaline Casts 7 H (0-2) /lpf Urine Mucus Occasional H (None) /hpf - EKG Data EKG Comments: EKG obtained at 1748 shows sinus rhythm with right bundle branch block and left anterior fascicular block. Ventricular rate is 90, W[place] interval 158, QR hindu 134, QT 408, QTC 499. This was compared to EKG obtained on 2016, changes appear to be chronic. (Marry Barron) - Radiology Data X-rays of the pelvis and hip are obtained. These no fracture or malalignment. Left femoral orthopedic hardware is intact. The soft tissues are unremarkable. Impression by Dr. Michelle Rodas shows no acute process. CT of the brain and cervical spine are performed without contrast. Report was reviewed in its entirety. Impression by Dr. Michelle Rodas shows no acute fracture dislocation evident in the cervical spine. No acute intracranial hemorrhage, mass effect, or midline shift is seen. Two-view x-ray of the chest is obtained. Report was reviewed in its entirety. Impression by Dr. Michelle Rodas shows enlarged right bronchogenic mass, consistent with neoplasm. (Marry Barron) Disposition <Oliverio Wu - Last Filed: 10/17/17 19:34> Decision to Admit Reason: Admit from EC Decision Date: 10/17/17 Decision Time: 19:32 <Marry Barron - Last Filed: 10/18/17 03:44> Clinical Impression: Urinary tract infection, Syncope, Anemia Disposition: ADMITTED IP TO THIS HOSP Condition: Serious
[2017-10-17 17:37] LABS: Anisocytosis Slight; Basophils % (A) 1 %; Eosinophils # (A) 0.1 k/uL (0-0.7); Eosinophils % (A) 2 %; HCT 31.2 % (34.0-46.0); HGB 9.8 gm/dL (11.4-16.0); Hypochromasia Slight; Lymphocytes # (A) 0.8 k/uL (1.0-4.8); Lymphocytes % (A) 11 %; MCH 23.6 pg (25.0-35.0); MCHC 31.4 g/dL (31.0-37.0); MCV 75.1 fL (80.0-100.0); Mean Platelet Volume 6.9; Microcytosis Slight; Monocytes # (A) 0.4 k/uL (0-1.0); Monocytes % (A) 5 %; Neutrophils # (A) 5.9 k/uL (1.3-7.7); Neutrophils % (A) 80 %; Platelet Count 274 k/uL (150-450); RBC 4.15 m/uL (3.80-5.40); RDW 16.2 % (11.5-15.5); WBC 7.3 k/uL (3.8-10.6)
[2017-10-17 17:47] LABS: INR 1.1 (<1.2); Partial Thromboplastin Time 23.2 sec (22.0-30.0); Prothrombin Time 10.4 sec (9.0-12.0)
[2017-10-17 17:59] LABS: ALT 23 U/L (9-52); AST 15 U/L (14-36); Albumin 2.5 g/dL (3.5-5.0); Alkaline Phosphatase 91 U/L (38-126); Anion Gap 8 mmol/L; Blood Urea Nitrogen 12 mg/dL (7-17); Calcium 7.6 mg/dL (8.4-10.2); Carbon Dioxide 25 mmol/L (22-30); Chloride 100 mmol/L (98-107); Creatine Kinase <20 U/L (30-135); Glucose 236 mg/dL (74-99); Magnesium 1.9 mg/dL (1.6-2.3); Potassium 3.4 mmol/L (3.5-5.1); Sodium 133 mmol/L (137-145); Total Bilirubin 0.2 mg/dL (0.2-1.3); Total Protein 5.1 g/dL (6.3-8.2)
[2017-10-17 18:11] LABS: Creatine Kinase MB <0.2 ng/mL (0.0-2.4); Troponin I <0.012 ng/mL (0.000-0.034)
[2017-10-17 18:14] LABS: Appearance,Urine Cloudy (Clear); Bacteria,Urine Many /hpf; Bilirubin,Urine Negative (Negative); Blood,Urine Moderate (Negative); Color,Urine Yellow; Glucose,Urine (UA) 3+ (Negative); Hyaline Casts,Urine 7 /lpf (0-2); Ketones,Urine Negative (Negative); Leukocyte Esterase,Urine Large (Negative); Mucus,Urine Occasional /hpf; Nitrite,Urine Positive (Negative); PH, Urine 6.5 (5.0-8.0); Protein,Urine Trace (Negative); RBC,Urine 28 /hpf (0-5); Specific Gravity,Urine 1.011 (1.001-1.035); Squamous Epithelial Cell,Urine 2 /hpf (0-4); WBC,Urine >182 /hpf (0-5)
--- NOTE | 2017-10-17 18:47 | CT ---
EXAMINATION TYPE: CT brain guillermo wo con DATE OF EXAM: 10/17/2017 COMPARISON: 05/07/2015 HISTORY: Syncope. Posterior head injury. CT DLP: 1602 mGycm Automated exposure control for dose reduction was used. TECHNIQUE: CT scan of the head and cervical spine are performed without contrast. FINDINGS: There is no acute intracranial hemorrhage, mass effect, or midline shift identified. The ventricles and sulci are within normal limits in size. The globes are intact and the visualized sin uses are clear. Cervical spine is visualized in its entirety from C1 through upper thoracic levels and demonstrates s atisfactory alignment without evidence of acute fracture or dislocation. Prevertebral soft tissue ap pears within normal limits. The C1-C2 articulation is unremarkable. IMPRESSION: 1. There is no acute fracture or dislocation evident in the cervical spine. 2. No acute intracranial hemorrhage, mass effect, or midline shift is seen.
--- NOTE | 2017-10-17 19:00 | XR ---
EXAMINATION: XR chest 2V DATE AND TIME: 10/17/2017 6:39 PM ORDERING PROVIDER: Marry Barron CLINICAL INDICATION: syncop. The patient has history of right upper lobe mass. TECHNIQUE: PA and lateral COMPARISON: 01/09/2017 DESCRIPTION: The previously seen 4.6 cm right upper lobe mass has increased in its density and its vo lume, measuring approximately 6 x 8 cm in the craniocaudal and transverse planes. It is markedly ill- defined. The best characterize using contrast CT. Remainder the lungs show previously seen evidence of chronic interstitial lung, but this presumes the re is no clinical suspicion for pulmonary edema. There are no other pulmonary consolidative findings. No pneumothorax. Mildly enlarged fatty silhouette and tortuosity of the thoracic aorta redemonstrated. No acute skeletal findings. IMPRESSION: ENLARGED RIGHT BRONCHOGENIC MASS, CONSISTENT WITH NEOPLASM.
--- NOTE | 2017-10-17 19:02 | XR ---
PROCEDURE: XR Hip LT and AP Pelvis 3 views DATE AND TIME: 10/17/2017 6:39 PM REFERRING PHYSICIAN: Marry Barron CLINICAL INDICATION: PHH, Pain TECHNIQUE: Department protocol. COMPARISON: None FINDINGS: There is no fracture or malalignment. Left femoral orthopedic hardware is intact. The soft tissues are unremarkable. IMPRESSION: NO ACUTE PROCESS.
[2017-10-17] MEDS ORDERED: NALOXONE 0.4 MG/ML 1 ML VIAL IV PRN (19:28)
[2017-10-17] MEDS ORDERED: LEVOFLOXACIN 500MG-D5W PMX 500 MG in DEXTROSE/WATER 1 100ML.BAG IVPB STA (19:30)
[2017-10-17] MEDS: SODIUM CHLORIDE 0.9% 1,000 ML IV SCH (19:57)
[2017-10-17] MEDS ORDERED: LOSARTAN 50 MG TAB PO PRN (23:08)
[2017-10-17] MEDS ORDERED: GLIMEPIRIDE 1 MG TAB PO PRN (23:08)
[2017-10-18 07:46] LABS: Anisocytosis Slight; Basophils % (A) 0 %; Eosinophils # (A) 0.1 k/uL (0-0.7); Eosinophils % (A) 1 %; HCT 31.3 % (34.0-46.0); HGB 9.8 gm/dL (11.4-16.0); Hypochromasia Slight; Lymphocytes # (A) 0.9 k/uL (1.0-4.8); Lymphocytes % (A) 11 %; MCH 23.7 pg (25.0-35.0); MCHC 31.5 g/dL (31.0-37.0); MCV 75.4 fL (80.0-100.0); Mean Platelet Volume 7.4; Microcytosis Slight; Monocytes # (A) 0.5 k/uL (0-1.0); Monocytes % (A) 5 %; Neutrophils # (A) 6.9 k/uL (1.3-7.7); Neutrophils % (A) 81 %; Platelet Count 309 k/uL (150-450); RBC 4.15 m/uL (3.80-5.40); RDW 16.3 % (11.5-15.5); WBC 8.6 k/uL (3.8-10.6)
[2017-10-18 07:48] LABS: Glucose,Whole Blood 157 mg/dL (75-99)
[2017-10-18 07:51] LABS: ALT 20 U/L (9-52); AST 15 U/L (14-36); Albumin 2.5 g/dL (3.5-5.0); Alkaline Phosphatase 94 U/L (38-126); Anion Gap 8 mmol/L; Blood Urea Nitrogen 8 mg/dL (7-17); Calcium 7.8 mg/dL (8.4-10.2); Carbon Dioxide 24 mmol/L (22-30); Chloride 101 mmol/L (98-107); Glucose 154 mg/dL (74-99); Potassium 3.7 mmol/L (3.5-5.1); Sodium 133 mmol/L (137-145); Total Bilirubin 0.6 mg/dL (0.2-1.3); Total Protein 4.9 g/dL (6.3-8.2)
[2017-10-18] MEDS: INSULIN ASPART 100 UNIT/ML 1 ML 10 ML VIAL SQ SCH ×4 (08:47→20:47)
[2017-10-18] MEDS: ACETAMINOPHEN TAB 325 MG TAB PO PRN (10:30)
[2017-10-18 11:47] LABS: Glucose,Whole Blood 164 mg/dL (75-99)
[2017-10-18] MEDS: LEVOFLOXACIN 500MG-D5W PMX 500 MG in DEXTROSE/WATER 1 100ML.BAG IVPB SCH (14:51)
[2017-10-18 17:14] LABS: Glucose,Whole Blood 267 mg/dL (75-99)
[2017-10-18 18:34] LABS: Hemoglobin A1C 7.8 % (4.0-6.0)
[2017-10-18 20:12] LABS: Glucose,Whole Blood 201 mg/dL (75-99)
[2017-10-18] MEDS: SODIUM CHLORIDE 0.9% 1,000 ML IV SCH (20:46)
--- NOTE | 2017-10-18 22:29 | P.HPIM ---
History of Present Illness H&P Date: 10/18/17 Chief Complaint: Status post fall Patient is a 82-year-old male with a known history of hypertension, diabetes type 2, osteoarthritis and COPD and history of right upper lobe mass which is being followed by pulmonary and patient refused chemoradiation was brought to to ER status post fall.Daughter reports the patient got up from her chair to go to the restroom was walking with her walker. States that she suddenly fell backwards with initial impact to her buttocks and then fell back striking her head on the floor. Daughter states when she got to her was yelling her name she was not waking up. No bladder bowel incontinence. States that she then called EMS. Upon EMS arrival patient's blood sugar was 312. Patient does have a history of dementia and does not recall the fall. Daughter reports it is not unusual for her to have difficulty with her memory. Patient also has a recent diagnosis of lung cancer. Patient denies any current pain. She denies any headache, blurred vision, double vision, neck pain, or back pain. Initially she was complaining of pain to the right shoulder but denies any pain at this time. Patient denies any chest pain, shortness of breath, dizziness, weakness, abdominal pain, nausea, vomiting, or difficulties with bowel movements or urination. UA showed large leukocyte esterase and WBC greater than 182 Chest x-ray enlarged right bronchogenic mass consistent with neoplasm CT head there is no acute fracture or dislocation evident in the cervical spine No acute intracranial hemorrhage, Mass effect or midline shift. Review of Systems Complete review of systems could not be apparent from the patient due to underlying dementia Past Medical History Past Medical History: COPD, Dementia, Diabetes Mellitus, Hypertension, Osteoarthritis (OA), Pneumonia, Renal Disease Additional Past Medical History / Comment(s): Current UTI on 2nd round of antibiotics, R upper lobe mass-pt never wanted it worked up, NIDDM type II, nephritis with sepsis, nephrolithiasis, past UTIs, diverticular disease, chronic low back pain, past vertebral fractures, sciatica, osteoporosis, History of Any Multi-Drug Resistant Organisms: None Reported Past Surgical History: Appendectomy, Back Surgery, Bladder Surgery, Bowel Resection, Cholecystectomy, Ear Surgery, Hysterectomy, Joint Replacement, Orthopedic Surgery, Tonsillectomy Additional Past Surgical History / Comment(s): Right total shoulder, low back fusions x2, total L knee arthroplasty, R knee patella fracture with surgical repair, L hip fracture with surgical repair-plate/screws, colonoscopies, bowel resection r/t diverticular dx, bladder suspension, paratid gland surgery, bilateral cataract removals, bilateral ureteral stents. Past Anesthesia/Blood Transfusion Reactions: No Reported Reaction Past Psychological History: No Psychological Hx Reported Smoking Status: Former smoker - Past Family History Sister(s) Family Medical History: Cancer, Renal Disease Additional Family Medical History / Comment(s): sister had dialysis, sister possibly had stomach ca Father Family Medical History: No Reported History Additional Family Medical History / Comment(s): PT WAS ORPHANED DOES'NT KNOW ANY OF PARENTS HX Medications and Allergies Home Medications Medication Instructions Recorded Confirmed Type Losartan Potassium [Cozaar] 100 mg PO DAILY PRN 02/25/14 10/17/17 History Glimepiride [Amaryl] 1 mg PO DAILY PRN 11/24/15 10/17/17 History Allergies Allergy/AdvReac Type Severity Reaction Status Date / Time codeine Allergy Unknown Verified 10/17/17 17:11 hydrocodone Allergy Unknown Verified 10/17/17 17:11 hydrocodone bitartrate Allergy Unknown Verified 10/17/17 17:11 [From Vicodin] hydroxyzine Allergy Unknown Verified 10/17/17 17:11 hydroxyzine HCl Allergy Unknown Verified 10/17/17 17:11 [From Vistaril] hydroxyzine pamoate Allergy Unknown Verified 10/17/17 17:11 [From Vistaril] influenza virus vaccine, Allergy Swelling Verified 10/17/17 17:11 specific [Influenza Virus Vacc,Specific] morphine Allergy Unknown Verified 10/17/17 17:11 Penicillins Allergy Rash/Hives Verified 10/17/17 17:11 propoxyphene napsylate Allergy Unknown Verified 10/17/17 17:11 [From Darvocet-N 100] Sulfa (Sulfonamide Allergy Swelling Verified 10/17/17 17:11 Antibiotics) tetanus and diphtheria Allergy Swelling Verified 10/17/17 17:11 toxoids [Tetanus&Diphtheria Toxoid] Physical Exam Vitals: Vital Signs Temp Pulse Pulse Resp BP BP Pulse Ox 10/18/17 07:25 99.2 F 94 18 137/50 96 10/17/17 20:54 99.0 F 94 15 164/66 96 07/13/18 20:52 99 10/17/17 20:15 98.7 F 93 18 145/63 97 10/17/17 19:20 90 16 138/71 97 10/17/17 16:46 98.7 F 101 H 16 149/63 97 Intake and Output 10/17/17 10/18/17 10/18/17 22:59 06:59 14:59 Intake Total 640 100 Balance 640 100 Intake: Intake, IV Titration 640 100 Amount Levofloxacin 500Mg-D5w 100 100 Pmx 500 mg In Dextrose/ Water 1 100ml.bag @ 100 mls/hr IVPB ONCE [facility] Rx#: [id number] Sodium Chloride 0.9% 1, 40 000 ml @ 20 mls/hr IV . Q24H [facility] Rx#:[id number] Sodium Chloride 0.9% 500 500 ml @ 999 mls/hr IV .Q31M [facility] Rx#:[id number] Other: Voiding Method Toilet Toilet Bedside Commode # Voids 1 2 3 Weight 66.678 kg 66.678 kg PHYSICAL EXAMINATION: Patient is lying in the bed comfortably, no acute distress, awake alert and oriented 1.. HEENT: Normocephalic. Neck is supple. Pupils reactive. Nostrils clear. Oral cavity is moist. Ears reveal no drainage. Neck reveals no JVD, carotid bruits, or thyromegaly. CHEST EXAMINATION: Trachea is central. Symmetrical expansion. Bibasilar diminished air entry Lung castellanos clear to auscultation and percussion. CARDIAC: Normal S1, S2 with no gallops. No murmurs ABDOMEN: Soft. Bowel sounds normal. No organomegaly. No abdominal bruits. Extremities: reveal no edema. No clubbing or cyanosis Neurologically awake, alert, oriented x1 with well-coordinated movements. No focal deficits noted Skin: No rash or skin lesions. Psychiatric: Coperative. Nonsuicidal Musculoskeletal: No joint swelling or deformity. Normal range of motion. Results CBC & Chem 7: 10/18/17 07:13 10/18/17 07:13 Labs: Abnormal Lab Results - Last 24 Hours (Table) 10/17/17 10/17/17 10/17/17 Range/Units 17:29 17:29 17:29 Hgb 9.8 L (11.4-16.0) gm/dL Hct 31.2 L (34.0-46.0) % MCV 75.1 L (80.0-100.0) fL MCH 23.6 L (25.0-35.0) pg RDW 16.2 H (11.5-15.5) % Lymphocytes # 0.8 L (1.0-4.8) k/uL Sodium 133 L (137-145) mmol/L Potassium 3.4 L (3.5-5.1) mmol/L Creatinine 0.50 L (0.52-1.04) mg/dL Glucose 236 H (74-99) mg/dL POC Glucose (mg/dL) (75-99) mg/dL Calcium 7.6 L (8.4-10.2) mg/dL Total Creatine Kinase <20 L (30-135) U/L Total Protein 5.1 L (6.3-8.2) g/dL Albumin 2.5 L (3.5-5.0) g/dL Urine Appearance (Clear) Urine Protein (Negative) Urine Glucose (UA) (Negative) Urine Blood (Negative) Urine Nitrite (Negative) Ur Leukocyte Esterase (Negative) Urine RBC (0-5) /hpf Urine WBC (0-5) /hpf Urine WBC Clumps (None) /hpf Urine Bacteria (None) /hpf Hyaline Casts (0-2) /lpf Urine Mucus (None) /hpf 10/17/17 10/18/17 10/18/17 Range/Units 17:54 07:13 07:13 Hgb 9.8 L (11.4-16.0) gm/dL Hct 31.3 L (34.0-46.0) % MCV 75.4 L (80.0-100.0) fL MCH 23.7 L (25.0-35.0) pg RDW 16.3 H (11.5-15.5) % Lymphocytes # 0.9 L (1.0-4.8) k/uL Sodium 133 L (137-145) mmol/L Potassium (3.5-5.1) mmol/L Creatinine 0.51 L (0.52-1.04) mg/dL Glucose 154 H (74-99) mg/dL POC Glucose (mg/dL) (75-99) mg/dL Calcium 7.8 L (8.4-10.2) mg/dL Total Creatine Kinase (30-135) U/L Total Protein 4.9 L (6.3-8.2) g/dL Albumin 2.5 L (3.5-5.0) g/dL Urine Appearance Cloudy H (Clear) Urine Protein Trace H (Negative) Urine Glucose (UA) 3+ H (Negative) Urine Blood Moderate H (Negative) Urine Nitrite Positive H (Negative) Ur Leukocyte Esterase Large H (Negative) Urine RBC 28 H (0-5) /hpf Urine WBC >182 H (0-5) /hpf Urine WBC Clumps Few H (None) /hpf Urine Bacteria Many H (None) /hpf Hyaline Casts 7 H (0-2) /lpf Urine Mucus Occasional H (None) /hpf 10/18/17 10/18/17 Range/Units 07:41 11:44 Hgb (11.4-16.0) gm/dL Hct (34.0-46.0) % MCV (80.0-100.0) fL MCH (25.0-35.0) pg RDW (11.5-15.5) % Lymphocytes # (1.0-4.8) k/uL Sodium (137-145) mmol/L Potassium (3.5-5.1) mmol/L Creatinine (0.52-1.04) mg/dL Glucose (74-99) mg/dL POC Glucose (mg/dL) 157 H 164 H (75-99) mg/dL Calcium (8.4-10.2) mg/dL Total Creatine Kinase (30-135) U/L Total Protein (6.3-8.2) g/dL Albumin (3.5-5.0) g/dL Urine Appearance (Clear) Urine Protein (Negative) Urine Glucose (UA) (Negative) Urine Blood (Negative) Urine Nitrite (Negative) Ur Leukocyte Esterase (Negative) Urine RBC (0-5) /hpf Urine WBC (0-5) /hpf Urine WBC Clumps (None) /hpf Urine Bacteria (None) /hpf Hyaline Casts (0-2) /lpf Urine Mucus (None) /hpf Thrombosis Risk Factor Assmnt - DVT/VTE Prophylaxis DVT/VTE Prophylaxis: Pharmacologic Prophylaxis ordered - Choose All That Apply Each Factor Represents 1 point: Abnormal pulmonary function (COPD), Obesity ( BMI >25) Each Risk Factor Represents 3 Points: Age 75 years or older Other congenital or acquired thrombophilia - If yes, enter type in comment: No Thrombosis Risk Factor Assessment Total Risk Factor Score: 5 Thrombosis Risk Factor Assessment Level: High Risk Assessment and Plan Assessment: Syncope likely due to vasovagal and UTI Acute urinary tract infection Recently diagnosed lung cancer. Patient refuses chemoradiation. Microcytic anemia hemoglobin 9.8 Dementia Hypertension Diabetes type 2 [id number] Osteoarthritis Previous history of smoking DVT prophylaxis Plan: Patient will be continued on antibiotics in the form of levofloxacin. Follow- up urine culture reports. IV fluids. Encourage oral intake. Will check iron profile. Continue the home medications and further recommendations based on the clinical course. Discussed with her daughter at bedside in detail. PTOT and possible discharge home with physical therapy. Time with Patient: Greater than 30
[2017-10-18] MEDS: HEPARIN SODIUM,PORCINE 5,000 UNIT/ML 1 ML VIAL SQ SCH (23:53)
[2017-10-19] MEDS: ACETAMINOPHEN TAB 325 MG TAB PO PRN ×3 (00:04→20:24)
[2017-10-19 07:40] LABS: Glucose,Whole Blood 195 mg/dL (75-99)
[2017-10-19 07:45] LABS: Basophils % (A) 0 %; Eosinophils # (A) 0.1 k/uL (0-0.7); Eosinophils % (A) 1 %; HCT 33.9 % (34.0-46.0); HGB 10.3 gm/dL (11.4-16.0); Hypochromasia Moderate; Lymphocytes # (A) 0.8 k/uL (1.0-4.8); Lymphocytes % (A) 8 %; MCH 23.3 pg (25.0-35.0); MCHC 30.3 g/dL (31.0-37.0); MCV 76.7 fL (80.0-100.0); Mean Platelet Volume 6.8; Microcytosis Slight; Monocytes # (A) 0.4 k/uL (0-1.0); Monocytes % (A) 4 %; Neutrophils # (A) 8.2 k/uL (1.3-7.7); Neutrophils % (A) 86 %; Platelet Count 346 k/uL (150-450); RBC 4.41 m/uL (3.80-5.40); RDW 15.8 % (11.5-15.5); WBC 9.6 k/uL (3.8-10.6)
[2017-10-19 07:50] LABS: Anion Gap 9 mmol/L; Blood Urea Nitrogen 9 mg/dL (7-17); Calcium 7.8 mg/dL (8.4-10.2); Carbon Dioxide 25 mmol/L (22-30); Chloride 100 mmol/L (98-107); Glucose 181 mg/dL (74-99); Potassium 3.7 mmol/L (3.5-5.1); Sodium 134 mmol/L (137-145)
[2017-10-19] MEDS: HEPARIN SODIUM,PORCINE 5,000 UNIT/ML 1 ML VIAL SQ SCH ×3 (08:05→23:20)
[2017-10-19] MEDS: INSULIN ASPART 100 UNIT/ML 1 ML 10 ML VIAL SQ SCH ×4 (08:05→21:38)
[2017-10-19 10:51] LABS: Glucose,Whole Blood 173 mg/dL (75-99)
--- NOTE | 2017-10-19 12:12 | CT ---
EXAMINATION TYPE: CT chest angio for PE DATE OF EXAM: 10/19/2017 COMPARISON: Previous study dated 01/09/2017. HISTORY: Difficulty breathing CT DLP: 299.8 mGycm Automated exposure control for dose reduction was used. CONTRAST: CT Chest for pulmonary embolism performed with with IV Contrast, patient injected with 100, wasted 13 mL of Isovue 300. FINDINGS: The patient's right upper lobe pulmonary mass has increased in size from 4.5 x 4.1 x 3.5 cm to 5 x 7.8 x 8.4 cm. There may be some mild cortical destruction of the adjacent right fourth rib. There are stable nodules in the right middle lobe measuring 9.3 and 7.8 mm respectively. There is a 7 .2 mm nodule in the left lingula. There are underlying emphysematous changes. There are enlarging right hilar lymph nodes. There is no pleural or pericardial fluid. The heart is not enlarged. There is no evidence of pulmonary embolus. The aorta is normal in caliber without evidence of dissect ion. Visualized portions of the upper abdomen are unremarkable. There is been a previous kyphoplasty at L2. There is hypertrophic spondylosis in the dorsal spine. IMPRESSION: 1. ENLARGING RIGHT UPPER LOBE MASS. 2. STABLE, BILATERAL PULMONARY NODULES. 3. ENLARGING RIGHT HILAR ADENOPATHY. 4. MILD CORTICAL DESTRUCTION OF THE RIGHT FOURTH RIB. 5. EMPHYSEMATOUS CHANGE. 6. THIS EXAMINATION IS NEGATIVE FOR PULMONARY EMBOLUS. #7 DEGENERATIVE AND POSTSURGICAL CHANGES WITHI N THE SPINE.
[2017-10-19] MEDS: LEVOFLOXACIN 500MG-D5W PMX 500 MG in DEXTROSE/WATER 1 100ML.BAG IVPB SCH (13:22)
--- NOTE | 2017-10-19 14:11 | P.PN ---
Subjective Progress Note Date: 10/19/17 Principal diagnosis: Syncope Patient is a 82-year-old male with a known history of hypertension, diabetes type 2, osteoarthritis and COPD and history of right upper lobe mass which is being followed by pulmonary and patient refused chemoradiation was brought to to ER status post fall.Daughter reports the patient got up from her chair to go to the restroom was walking with her walker. States that she suddenly fell backwards with initial impact to her buttocks and then fell back striking her head on the floor. Daughter states when she got to her was yelling her name she was not waking up. No bladder bowel incontinence. States that she then called EMS. Upon EMS arrival patient's blood sugar was 312. Patient does have a history of dementia and does not recall the fall. Daughter reports it is not unusual for her to have difficulty with her memory. Patient also has a recent diagnosis of lung cancer. Patient denies any current pain. She denies any headache, blurred vision, double vision, neck pain, or back pain. Initially she was complaining of pain to the right shoulder but denies any pain at this time. Patient denies any chest pain, shortness of breath, dizziness, weakness, abdominal pain, nausea, vomiting, or difficulties with bowel movements or urination. UA showed large leukocyte esterase and WBC greater than 182 Chest x-ray enlarged right bronchogenic mass consistent with neoplasm CT head there is no acute fracture or dislocation evident in the cervical spine No acute intracranial hemorrhage, Mass effect or midline shift. 10/19/2017 Patient is confused and delirious today. Patient does have underlying dementia. As per her daughter at bedside patient is comparing of insect crawling on the legs. Patient is also confused. Patient was tachycardic this morning and is having shortness of breath. Due to elevated d-dimer CTA angiogram of the chest was done. Showed enlarging right upper lobe mass. Stable bilateral pulmonary nodules. Enlarging right hilar adenopathy. Emphysematous change. Negative for pulmonary embolism. Due to worsening clinical condition and enlarging lung mass family requested hospice to be consulted. Prognosis is poor at this time. because of chest pain. no nausea no vomiting. Complete review of systems could not be apparent from the patient. Current medications reviewed. Objective - Vital Signs Vital signs: Vital Signs Temp 98.0 F 10/19/17 07:00 Pulse 119 H 10/19/17 07:00 Resp 20 10/18/17 22:44 BP 136/63 10/19/17 07:00 Pulse Ox 96 10/19/17 07:00 Intake & Output 10/18/17 10/19/17 10/19/17 18:59 06:59 18:59 Intake Total 580 850 Balance 580 850 Weight 66.678 kg Intake: Intake, IV Titration 100 100 Amount Levofloxacin 500Mg-D5w 100 100 Pmx 500 mg In Dextrose/ Water 1 100ml.bag @ 100 mls/hr IVPB Q24H [facility] Rx#: [id number] Oral 480 750 Other: Voiding Method Toilet Toilet # Voids 3 5 3 - Exam PHYSICAL EXAMINATION: Patient is lying in the bed comfortably, no acute distress, awake alert and oriented 1.. HEENT: Normocephalic. Neck is supple. Pupils reactive. Nostrils clear. Oral cavity is moist. Ears reveal no drainage. Neck reveals no JVD, carotid bruits, or thyromegaly. CHEST EXAMINATION: Trachea is central. Symmetrical expansion. Bibasilar diminished air entry Lung castellanos clear to auscultation and percussion. CARDIAC: Normal S1, S2 with no gallops. No murmurs ABDOMEN: Soft. Bowel sounds normal. No organomegaly. No abdominal bruits. Extremities: reveal no edema. No clubbing or cyanosis Neurologically awake, alert, oriented x1 with well-coordinated movements. No focal deficits noted Skin: No rash or skin lesions. Psychiatric: Coperative. Nonsuicidal Musculoskeletal: No joint swelling or deformity. Normal range of motion. - Labs CBC & Chem 7: 10/19/17 07:15 10/19/17 07:15 Labs: Abnormal Lab Results - Last 24 Hours (Table) 10/18/17 10/18/17 10/18/17 Range/Units 07:13 17:05 20:11 Hgb (11.4-16.0) gm/dL Hct (34.0-46.0) % MCV (80.0-100.0) fL MCH (25.0-35.0) pg MCHC (31.0-37.0) g/dL RDW (11.5-15.5) % Neutrophils # (1.3-7.7) k/uL Lymphocytes # (1.0-4.8) k/uL D-Dimer (<0.60) mg/L FEU Sodium (137-145) mmol/L Glucose (74-99) mg/dL POC Glucose (mg/dL) 267 H 201 H (75-99) mg/dL Hemoglobin A1c 7.8 H (4.0-6.0) % Calcium (8.4-10.2) mg/dL 10/19/17 10/19/17 10/19/17 Range/Units 07:15 07:15 07:30 Hgb 10.3 L (11.4-16.0) gm/dL Hct 33.9 L (34.0-46.0) % MCV 76.7 L (80.0-100.0) fL MCH 23.3 L (25.0-35.0) pg MCHC 30.3 L (31.0-37.0) g/dL RDW 15.8 H (11.5-15.5) % Neutrophils # 8.2 H (1.3-7.7) k/uL Lymphocytes # 0.8 L (1.0-4.8) k/uL D-Dimer (<0.60) mg/L FEU Sodium 134 L (137-145) mmol/L Glucose 181 H (74-99) mg/dL POC Glucose (mg/dL) 195 H (75-99) mg/dL Hemoglobin A1c (4.0-6.0) % Calcium 7.8 L (8.4-10.2) mg/dL 10/19/17 10/19/17 Range/Units 08:23 10:50 Hgb (11.4-16.0) gm/dL Hct (34.0-46.0) % MCV (80.0-100.0) fL MCH (25.0-35.0) pg MCHC (31.0-37.0) g/dL RDW (11.5-15.5) % Neutrophils # (1.3-7.7) k/uL Lymphocytes # (1.0-4.8) k/uL D-Dimer 1.69 H (<0.60) mg/L FEU Sodium (137-145) mmol/L Glucose (74-99) mg/dL POC Glucose (mg/dL) 173 H (75-99) mg/dL Hemoglobin A1c (4.0-6.0) % Calcium (8.4-10.2) mg/dL Microbiology - Last 24 Hours (Table) 10/18/17 16:10 Urine Culture - Preliminary Urine,Voided Assessment and Plan Assessment: Syncope likely due to vasovagal and UTI Acute urinary tract infection Recently diagnosed lung cancer. Patient refuses chemoradiation. Enlarging right upper lobe mass as per CTA chest Microcytic anemia hemoglobin 9.8 Dementia Hypertension Diabetes type 2 [id number] Osteoarthritis Previous history of smoking DVT prophylaxis Plan: Patient will be continued on antibiotics in the form of levofloxacin. Follow- up urine culture reports. IV fluids. Encourage oral intake. Continue the home medications and further recommendations based on the clinical course. Discussed with her daughter at bedside in detail. Hospice is consulted as per family request. Time with Patient: Greater than 30
[2017-10-19 17:08] LABS: Glucose,Whole Blood 154 mg/dL (75-99)
[2017-10-19 21:02] LABS: Glucose,Whole Blood 170 mg/dL (75-99)
[2017-10-20] MEDS: ACETAMINOPHEN TAB 325 MG TAB PO PRN (03:25)
[2017-10-20 07:01] VITALS: BP 150/63; RESP 20; TEMP 97.4
[2017-10-20 07:30] LABS: Glucose,Whole Blood 147 mg/dL (75-99)
[2017-10-20] MEDS: INSULIN ASPART 100 UNIT/ML 1 ML 10 ML VIAL SQ SCH ×2 (07:38→12:18)
[2017-10-20 09:51] VITALS: PULSE 94
[2017-10-20] MEDS: SODIUM CHLORIDE 0.9% 1,000 ML IV SCH (10:44)
[2017-10-20] MEDS: HEPARIN SODIUM,PORCINE 5,000 UNIT/ML 1 ML VIAL SQ SCH (10:45)
[2017-10-20 10:54] LABS: Iron Saturation 5.84 (12.00-45.00)
[2017-10-20 11:25] LABS: Glucose,Whole Blood 173 mg/dL (75-99)
[2017-10-20] MEDS: LEVOFLOXACIN 500MG-D5W PMX 500 MG in DEXTROSE/WATER 1 100ML.BAG IVPB SCH (11:59)
--- NOTE | 2017-10-21 16:47 | DS ---
DISCHARGE SUMMARY CHIEF COMPLAINT: Syncope and urinary tract infection with CA of the lung. HISTORY OF PRESENT ILLNESS AND PHYSICAL EXAM: Details of this lady's history and physical can be found in the initial workup. LABORATORY STUDIES: While she was in a hospital, she had laboratory studies, details which can be found laboratory section of her chart. COURSE IN THE HOSPITAL: After admission she was placed on bedrest, started on intravenous fluids, and she was treated for urinary tract infection. Decision was made by the patient and the family that she should enter hospice and this was arranged. She will be discharged to inpatient hospice on the . FINAL DIAGNOSES: 1. Syncope. 2. Urinary tract infection. 3. Carcinoma of the lung. 4. Chronic obstructive pulmonary disease. 5. Type 2 diabetes mellitus. 6. Hypertension. OPERATIONS: None. CONSULTATION: None. She is improved. MMPERRYL / ALEE: [id number] /
== END 2017-10-20 14:58 | disposition hospice, inpatient (51) | DRG 690 ==
LOC: EC 16:41 → 5MS5E 19:32
PROVIDERS: ADMIT Family Medicine; ATTEND Family Medicine
DX: N39.0 Urinary tract infection, site not specified (principal); C34.11 Malignant neoplasm of upper lobe, right bronchus or lung; R40.2142 Coma scale, eyes open, spontaneous, at arrival to emergency department; R40.2362 Coma scale, best motor response, obeys commands, at arrival to emergency department; R40.2252 Coma scale, best verbal response, oriented, at arrival to emergency department; D50.9 Iron deficiency anemia, unspecified; E11.9 Type 2 diabetes mellitus without complications; F03.90 Unspecified dementia, unspecified severity, without behavioral disturbance, psychotic disturbance, mood disturbance, and anxiety; I10 Essential (primary) hypertension; J44.9 Chronic obstructive pulmonary disease, unspecified; M19.90 Unspecified osteoarthritis, unspecified site; R79.1 Abnormal coagulation profile; W19.XXXA Unspecified fall, initial encounter; Y92.009 Unspecified place in unspecified non-institutional (private) residence as the place of occurrence of the external cause; Z79.899 Other long term (current) drug therapy; Z87.891 Personal history of nicotine dependence; Z90.710 Acquired absence of both cervix and uterus; Z90.49 Acquired absence of other specified parts of digestive tract; Z96.652 Presence of left artificial knee joint; Z88.5 Allergy status to narcotic agent; Z88.0 Allergy status to penicillin; Z88.2 Allergy status to sulfonamides; Z88.7 Allergy status to serum and vaccine; Z88.8 Allergy status to other drugs, medicaments and biological substances; Z53.29 Procedure and treatment not carried out because of patient's decision for other reasons
CPT/HCPCS: 36415; 70450; 71046; 71275; 72125; 73502; 80048; 80053; 81001; 82550; 82553; 82728; 83036; 83540; 83550; 83735; 84484; 85025; 85379; 85610; 85730; 87086; 93005; 94760; 96361; 96365; 99285

== ENCOUNTER 2018-01-05 05:48 | Observation (INO) | payer MEDICARE, BC ==
[2018-01-05] MEDS ORDERED: fentaNYL (PF) 50 MCG/ML 2 ML AMP IV STA (06:35)
--- NOTE | 2018-01-05 06:37 | ED ---
Fall HPI <Carlito Hagen - Last Filed: 01/05/18 08:39> - General Source: patient Mode of arrival: EMS - History of Present Illness MD Complaint: fall Onset/Timin -: hour(s) Fall From: standing When Fall Occurred: 1 hour [employer] Fall Witnessed: yes, by family Place Fall Occurred: home Loss of Consciousness: none Prolonged Down Time?: no Symptoms Prior to Fall: none Severity: mild <Jules Treviño - Last Filed: 01/16/18 09:08> - General Chief Complaint: Fall Stated Complaint: fall,hip pain - History of Present Illness Initial Comments: This patient is an 83-year-old woman brought to be evaluated after she had a ground-level fall. There was suspected left hip fracture given some suspected angulation. Patient indicates pain at the left hip, and states she was not able to get up after the fall. (Jules Treviño) - Related Data Home Medications Medication Instructions Recorded Confirmed Glimepiride [Amaryl] 1 mg PO DAILY PRN 01/05/18 01/05/18 traMADol HCL [Ultram] 50 mg PO Q6H PRN 01/05/18 01/05/18 Allergies Allergy/AdvReac Type Severity Reaction Status Date / Time codeine Allergy Unknown Verified 01/05/18 07:56 hydrocodone Allergy Unknown Verified 01/05/18 07:56 hydrocodone bitartrate Allergy Unknown Verified 01/05/18 07:56 [From Vicodin] hydroxyzine Allergy Unknown Verified 01/05/18 07:56 hydroxyzine HCl Allergy Unknown Verified 01/05/18 07:56 [From Vistaril] hydroxyzine pamoate Allergy Unknown Verified 01/05/18 07:56 [From Vistaril] influenza virus vaccine, Allergy Swelling Verified 01/05/18 07:56 specific [Influenza Virus Vacc,Specific] morphine Allergy Unknown Verified 01/05/18 07:56 Penicillins Allergy Rash/Hives Verified 01/05/18 07:56 propoxyphene napsylate Allergy Unknown Verified 01/05/18 07:56 [From Darvocet-N 100] Sulfa (Sulfonamide Allergy Swelling Verified 01/05/18 07:56 Antibiotics) tetanus and diphtheria Allergy Swelling Verified 01/05/18 07:56 toxoids [Tetanus&Diphtheria Toxoid] Review of Systems ROS Other: All systems not noted in ROS Statement are negative. <Carlito Hagen - Last Filed: 01/05/18 08:39> ROS Other: All systems not noted in ROS Statement are negative. <HudsonJules - Last Filed: 01/16/18 09:08> ROS Statement: Those systems with pertinent positive or pertinent negative responses have been documented in the HPI. Past Medical History Past Medical History: COPD, Dementia, Diabetes Mellitus, Hypertension, Osteoarthritis (OA), Pneumonia, Renal Disease Additional Past Medical History / Comment(s): Current UTI on 2nd round of antibiotics, R upper lobe mass-pt never wanted it worked up, NIDDM type II, nephritis with sepsis, nephrolithiasis, past UTIs, diverticular disease, chronic low back pain, past vertebral fractures, sciatica, osteoporosis, History of Any Multi-Drug Resistant Organisms: None Reported Past Surgical History: Appendectomy, Back Surgery, Bladder Surgery, Bowel Resection, Cholecystectomy, Ear Surgery, Hysterectomy, Joint Replacement, Orthopedic Surgery, Pacemaker, Tonsillectomy Additional Past Surgical History / Comment(s): Right total shoulder, low back fusions x2, total L knee arthroplasty, R knee patella fracture with surgical repair, L hip fracture with surgical repair-plate/screws, colonoscopies, bowel resection r/t diverticular dx, bladder suspension, paratid gland surgery, bilateral cataract removals, bilateral ureteral stents. Patient on hospice 2017 Past Anesthesia/Blood Transfusion Reactions: No Reported Reaction Past Psychological History: No Psychological Hx Reported Smoking Status: Former smoker - Past Family History Sister(s) Family Medical History: Cancer, Renal Disease Additional Family Medical History / Comment(s): sister had dialysis, sister possibly had stomach ca Father Family Medical History: No Reported History Additional Family Medical History / Comment(s): PT WAS ORPHANED DOES'NT KNOW ANY OF PARENTS HX <HudsonJules - Last Filed: 01/16/18 09:08> General Exam General appearance: alert, in no apparent distress Head exam: Present: atraumatic, normocephalic Eye exam: Present: normal appearance. Absent: scleral icterus, conjunctival injection Neck exam: Present: normal inspection, full ROM. Absent: tenderness Respiratory exam: Present: normal lung sounds bilaterally. Absent: respiratory distress, wheezes, rales, rhonchi, stridor, chest wall tenderness Cardiovascular Exam: Present: regular rate, normal rhythm, normal heart sounds. Absent: systolic murmur, diastolic murmur, rubs, gallop GI/Abdominal exam: Present: soft. Absent: distended, tenderness, guarding, rebound, rigid, mass Extremities exam: Present: tenderness, normal capillary refill, other (There does appear to be angulation of the left trochanter area.). Absent: full ROM ( Limited due to pain), pedal edema, calf tenderness Neurological exam: Present: alert. Absent: motor sensory deficit Skin exam: Present: warm, dry, intact, normal color. Absent: rash <Jules Trevñio - Last Filed: 01/16/18 09:08> Vital Signs 01/05/18 01/05/18 01/05/18 05:53 06:14 07:23 Temperature 97.4 F L Pulse Rate 104 H 98 Respiratory 15 16 16 Rate Blood Pressure 119/58 103/47 O2 Sat by Pulse 93 L 97 Oximetry 01/05/18 09:00 Temperature 98.6 F Pulse Rate 82 Respiratory 16 Rate Blood Pressure 118/60 O2 Sat by Pulse 98 Oximetry Medical Decision Making <Carlito Hagen - Last Filed: 01/05/18 08:39> <Jules Treviño - Last Filed: 01/16/18 09:08> - Medical Decision Making Patient's x-ray showed no acute abnormality. Patient was unable to ambulate (Carlito Hagen) Disposition Time of Disposition: 08:40 <Carlito Hagen - Last Filed: 01/05/18 08:39> <Jules Treviño - Last Filed: 01/16/18 09:08> Clinical Impression: Fall, Hip injury, Unable to ambulate Disposition: ADMITTED IP TO THIS HOSP Condition: Fair
--- NOTE | 2018-01-05 08:25 | XR ---
EXAMINATION TYPE: XR Hip LT and AP Pelvis DATE OF EXAM: 01/05/2018 COMPARISON: Prior pelvis dated 10/17/2017 HISTORY: Trauma and pain TECHNIQUE: A single AP view of the pelvis is obtained. Two views of the left hip are obtained. FINDINGS: There is no acute fracture/dislocation evident in the pelvis. The hip and sacroiliac join ts appear symmetric and unremarkable. The overlying soft tissue appears unremarkable. Two views of left hip show no acute fracture or dislocation. No focal lytic or sclerotic lesion seen in the proximal left femur. Postop changes are stable, and there is thickening of the femoral neck c ortex, patient is status post open reduction internal fixation. Bone mineralization is decreased whic h could limit sensitivity. There are vascular calcifications present. Postprocedural changes noted to multiple lumbar vertebral bodies. The overlying soft tissue is unremarkable. IMPRESSION: There is no acute fracture or dislocation in the pelvis or left hip. Low bone mineraliza tion. Postprocedural changes.
[2018-01-05] MEDS ORDERED: SODIUM CHLORIDE 0.9% 1,000 ML IV ONE (08:40)
[2018-01-05] MEDS ORDERED: traMADol 50 MG TAB PO PRN (10:42)
[2018-01-05] MEDS ORDERED: GLIMEPIRIDE 1 MG TAB PO PRN (10:42)
[2018-01-05 11:31] LABS: Glucose,Whole Blood 126 mg/dL (75-99)
[2018-01-05] MEDS ORDERED: HYDROmorphone 1 MG/ML 1 ML SYRINGE IVP PRN ×2 (12:13)
[2018-01-05] MEDS: HYDROmorphone 1 MG/ML 1 ML SYRINGE IVP PRN ×3 (12:39→21:16)
--- NOTE | 2018-01-05 14:51 | XR ---
Left knee HISTORY: Trauma and pain 2 views of the left knee on 3 images, correlation to pelvis and left hip same date, prior left knee . Patient is status post left knee arthroplasty. Open reduction internal fixation changed to the left p roximal femur noted. Bone mineralization is reduced. Alignment is maintained. Frontal view is rotated . Entire prosthesis is not included on the frontal view. IMPRESSION: No acute fracture or dislocation.
[2018-01-05] MEDS: diphenhydrAMINE 25 MG CAP PO PRN (19:26)
[2018-01-05 20:32] LABS: Glucose,Whole Blood 127 mg/dL (75-99)
--- NOTE | 2018-01-05 21:28 | HP ---
HISTORY AND PHYSICAL CHIEF COMPLAINT: Fall with pain in hip. HISTORY OF PRESENT ILLNESS: This is another admission for this elderly female who has a history of diabetes, COPD, hypertension and CA of the lung which she has elected not to treat. She apparently fell at home and became unable to bear weight on the affected hip. This is a prosthetic hip. There is no obvious pelvic fracture or any other abnormality seen on x-ray. REVIEW OF SYSTEMS: She is in quite a bit of discomfort, but she has no neurologic problems, confusion, change in vision hearing, chest pain, cough, shortness of breath, abdominal pain, etc. Past medical history, family history, personal and social histories reveal that she is ALLERGIC TO VICODIN, TETANUS TOXOID, PENICILLIN, CODEINE, PNEUMOVAX, LATEX, CALCIUM, VETO INHIBITORS, MORPHINE, FLU VACCINE, SULFA, AND VISTARIL. Currently she is only on glimepiride 1 mg once a day, and ibuprofen. She used to smoke but now has quit. PHYSICAL EXAM: Blood pressure 122/68, pulse 66, respirations 14 and she is afebrile. In general, she appeared to be slightly pale and in no acute distress but uncomfortable. Patient's head ears, eyes, nose, mouth, and throat were normal. Chest is clear. Cardiac exam is normal. The abdomen is soft and nontender. EXTREMITIES: Normal. Hip was . Pulses are good. Neurologically, she is intact. IMPRESSION: 1. Contusion of the hip. 2. Rule out damage to hip prosthesis. 3. Chronic obstructive pulmonary disease. 4. Diabetes. 5. Carcinoma of the lung. PLAN: 1. Bed rest. 2. Orthopedic consult. 3. Physical therapy. 4. Discharge planning. MMODL / IJN: [id number] /
[2018-01-06] MEDS: diphenhydrAMINE 25 MG CAP PO PRN ×4 (03:03→18:23)
[2018-01-06] MEDS: HYDROmorphone 1 MG/ML 1 ML SYRINGE IVP PRN ×3 (03:06→17:24)
[2018-01-06 06:55] LABS: Glucose,Whole Blood 95 mg/dL (75-99)
--- NOTE | 2018-01-06 09:55 | P.CNOR ---
History of Present Illness - [facility] Consult date: 01/05/18 Requesting physician: Juan Park Consult reason: joint pain History of present illness: Patient is a pleasant 82-year-old female seen in consultation for left lower extremity pain after a fall. She had an intramedullary hip screw placed for a left hip fracture [address] Park. She was admitted through the emergency department on 01/05/2018 after a fall at home resulted in difficulty or pain with ambulating. X-rays of the left hip showed no acute fracture and hardware intact. X-rays of the femur knee also showed no fractures or dislocation where she has implants from a total knee arthroplasty. She continues to have pain at different areas of her left lower extremity including the hip and thigh and ankle. She's had previous back surgery and chronic pain with her back. She apparently is on home hospice care if she has lung cancer. She does not complain of constant numbness or tingling down the left leg. She has no right leg complaints. She has no other complaints today. Review of Systems All systems: negative Constitutional: Denies chills, Denies fever Eyes: denies blurred vision, denies pain Ears, nose, mouth and throat: Denies headache, Denies sore throat Cardiovascular: Denies chest pain, Denies shortness of breath Respiratory: Denies cough Gastrointestinal: Denies abdominal pain, Denies diarrhea, Denies nausea, Denies vomiting Genitourinary: Denies dysuria, Denies hematuria Musculoskeletal: Denies myalgias Integumentary: Denies pruritus, Denies rash Neurological: Denies numbness, Denies weakness Psychiatric: Denies anxiety, Denies depression Endocrine: Denies fatigue, Denies weight change Past Medical History Past Medical History: COPD, Dementia, Diabetes Mellitus, Hypertension, Osteoarthritis (OA), Pneumonia, Renal Disease Additional Past Medical History / Comment(s): R upper lobe cancerous mass-pt declined chemo/radiation and is in hospice care, NIDDM type II, nephritis with sepsis, nephrolithiasis, past UTIs, diverticular disease, DDD. chronic low back pain, past vertebral fractures, sciatica, osteoporosis, anemia, occasional bilateral ankle edema History of Any Multi-Drug Resistant Organisms: None Reported Past Surgical History: Appendectomy, Back Surgery, Bladder Surgery, Bowel Resection, Cholecystectomy, Ear Surgery, Hysterectomy, Joint Replacement, Orthopedic Surgery, Tonsillectomy Additional Past Surgical History / Comment(s): Right total shoulder, low back fusions x2, total L knee arthroplasty, R knee patella fracture with surgical repair, L hip fracture with surgical repair-plate/screws, colonoscopies, bowel resection r/t diverticular dx, bladder suspension, bilateral paratid gland surgery, bilateral cataract removals, bilateral ureteral stents. Past Anesthesia/Blood Transfusion Reactions: No Reported Reaction Smoking Status: Former smoker - Past Family History Sister(s) Family Medical History: Cancer, Renal Disease Additional Family Medical History / Comment(s): One sister had dialysis and during dialysis, another sister possibly had stomach ca Father Family Medical History: No Reported History Additional Family Medical History / Comment(s): PT WAS ORPHANED DOES'NT KNOW ANY OF PARENTS HX Medications and Allergies Home Medications Medication Instructions Recorded Confirmed Type Glimepiride [Amaryl] 1 mg PO DAILY PRN 01/05/18 01/05/18 History diphenhydrAMINE HCL [Benadryl] 25 mg PO BID PRN 01/05/18 01/05/18 History traMADol HCL [Ultram] 50 mg PO Q6H PRN 01/05/18 01/05/18 History Allergies Allergy/AdvReac Type Severity Reaction Status Date / Time codeine Allergy Unknown Verified 01/05/18 07:56 hydrocodone Allergy Unknown Verified 01/05/18 07:56 hydrocodone bitartrate Allergy Unknown Verified 01/05/18 07:56 [From Vicodin] hydroxyzine Allergy Unknown Verified 01/05/18 07:56 hydroxyzine HCl Allergy Unknown Verified 01/05/18 07:56 [From Vistaril] hydroxyzine pamoate Allergy Unknown Verified 01/05/18 07:56 [From Vistaril] influenza virus vaccine, Allergy Swelling Verified 01/05/18 07:56 specific [Influenza Virus Vacc,Specific] morphine Allergy Unknown Verified 01/05/18 07:56 Penicillins Allergy Rash/Hives Verified 01/05/18 07:56 propoxyphene napsylate Allergy Unknown Verified 01/05/18 07:56 [From Darvocet-N 100] Sulfa (Sulfonamide Allergy Swelling Verified 01/05/18 07:56 Antibiotics) tetanus and diphtheria Allergy Swelling Verified 01/05/18 07:56 toxoids [Tetanus&Diphtheria Toxoid] Physical Examination Inspection of the left lower shoulder may shows no deformity. There are no wounds, lacerations, erythema or ecchymoses. She's tender at the left greater trochanter. She has pain with range of motion of the hip. She has negative straight leg raising. She has a guarded exam but appears to have full extension at the knee and flexion to 90 at least. The knee is ligamentously stable. She has nonspecific pain with range of motion of the left ankle. The ankle is ligamentously stable. It is not red or hot to touch. There is no deformity. The calf is soft and nontender. There is 2+ dorsalis pedis pulse and less than 2 second capillary refill present distally. Results X-rays of the left hip and knee are negative for acute fracture or dislocation. Hardware is intact at the left hip and knee. No evidence of loosening. - Labs Labs: Abnormal Lab Results - Last 24 Hours (Table) 01/05/18 01/05/18 Range/Units 11:29 20:31 POC Glucose (mg/dL) 126 H 127 H (75-99) mg/dL Assessment and Plan (1) Fall Narrative/Plan: X-rays of the hip and knee were negative for an acute fracture. There is no surgical intervention planned. We'll obtain an x-ray of the left ankle to assess for acute fracture. Recommend continued pain management and should her ankle x-ray be negative, would recommend continued PT and resume her home care. Current Visit: Yes Status: Acute Code(s): W19.XXXA - UNSPECIFIED FALL, INITIAL ENCOUNTER SNOMED Code(s): 4456078 (2) Hip injury Current Visit: Yes Status: Acute Code(s): S79.919A - UNSPECIFIED INJURY OF UNSPECIFIED HIP, INITIAL ENCOUNTER SNOMED Code(s): 240984297 (3) Unable to ambulate Current Visit: Yes Status: Acute Code(s): R26.2 - DIFFICULTY IN WALKING, NOT ELSEWHERE CLASSIFIED SNOMED Code(s): 489912711 (4) Abdominal pain Current Visit: No Status: Acute Code(s): R10.9 - UNSPECIFIED ABDOMINAL PAIN SNOMED Code(s): 50231422 (5) Acute sinusitis Current Visit: No Status: Acute Code(s): J01.90 - ACUTE SINUSITIS, UNSPECIFIED SNOMED Code(s): 96218928 (6) Anemia Current Visit: No Status: Acute Code(s): D64.9 - ANEMIA, UNSPECIFIED SNOMED Code(s): 945551699 (7) Back pain Current Visit: No Status: Acute Code(s): M54.9 - DORSALGIA, UNSPECIFIED SNOMED Code(s): 476035820 (8) Chest pain Current Visit: No Status: Acute Code(s): R07.9 - CHEST PAIN, UNSPECIFIED SNOMED Code(s): 60902468 (9) Lung cancer Current Visit: No Status: Acute Code(s): C34.90 - MALIGNANT NEOPLASM OF UNSP PART OF UNSP BRONCHUS OR LUNG SNOMED Code(s): 632529951
[2018-01-06 11:37] LABS: Glucose,Whole Blood 97 mg/dL (75-99)
--- NOTE | 2018-01-06 12:04 | XR ---
EXAMINATION TYPE: XR ankle complete 3 views LT DATE OF EXAM: 01/06/2018 COMPARISON: NONE HISTORY: 82-year-old female ankle pain after fall FINDINGS: Mild periosteal new bone formation along the lengths of the visualized distal fibular and tibial shaf ts. No displaced fracture is identified. Marked osteopenia. Moderate size plantar calcaneal spur. Ext ernal artifacts projecting over the os tear soft tissues precluding assessment of the Achilles tendon . IMPRESSION: Marked osteopenia limiting assessment. No displaced fracture seen. Uniform periostitis along the visualized distal fibular and tibial shafts. Some differential consider ations include HPOA, thyroid disease, chronic venous stasis, and chronic overlying cellulitis. Clini nicole correlate.
[2018-01-06 12:06] VITALS: BMI 34.6
[2018-01-06 16:00] LABS: Hemoglobin A1C 6.7 % (4.0-6.0)
[2018-01-06 17:14] LABS: Glucose,Whole Blood 182 mg/dL (75-99)
[2018-01-06 20:10] LABS: Glucose,Whole Blood 140 mg/dL (75-99)
[2018-01-06] MEDS: oxyCODONE ER 10 MG TAB.ER.12H PO SCH (20:25)
[2018-01-07 07:04] LABS: Glucose,Whole Blood 134 mg/dL (75-99)
[2018-01-07] MEDS: oxyCODONE ER 10 MG TAB.ER.12H PO SCH (08:39)
[2018-01-07] MEDS: diphenhydrAMINE 25 MG CAP PO PRN ×2 (08:59→15:08)
--- NOTE | 2018-01-07 09:48 | P.PN ---
Subjective Progress Note Date: 01/07/18 Principal diagnosis: Left leg pain. Patient irene grissom 82 yo female seen at bedside this morning. we are following for left leg pain. She is s/p left IT nail and left knee arthroplasty. Xrays of the left femur and ankle are negative for acute fracture/dislocation. She is on home hospice for lung CA. She has no new complaints today. He pain is better controlled today since starting Oxy ER. ROS is negative for numbness, tingling, fever, chills, chest pain or SOB Objective - Vital Signs Vital signs: Vital Signs Temp 97.7 F 01/07/18 08:15 Pulse 85 01/07/18 08:15 Resp 18 01/07/18 08:15 BP 149/67 01/07/18 08:15 Pulse Ox 91 L 01/07/18 08:15 Intake & Output 01/06/18 01/07/18 01/07/18 18:59 06:59 18:59 Intake Total 50 Output Total 850 Balance -800 Weight 72.575 kg Intake: Oral 50 Output: Urine 850 Other: Voiding Method Indwelling Catheter Indwelling Catheter Indwelling Catheter # Bowel Movements 0 - Exam Inspection of left lower extremity reveals benign well healed surgical wounds. There is no erythema or echymosis. No deformity. Neurovascular status is intact throughout the lower extremity with motor and sensation fully intact. Calf is soft and nontender. 2+ dorsalis pedis pulse and less than 2 second cap refill is present - Constitutional General appearance: Present: no acute distress - Labs Labs: Abnormal Lab Results - Last 24 Hours (Table) 01/06/18 01/06/18 01/06/18 Range/Units 07:46 17:13 20:09 POC Glucose (mg/dL) 182 H 140 H (75-99) mg/dL Hemoglobin A1c 6.7 H (4.0-6.0) % 01/07/18 Range/Units 07:03 POC Glucose (mg/dL) 134 H (75-99) mg/dL Hemoglobin A1c (4.0-6.0) % - Imaging and Cardiology Xray of left ankle is negative for fracture Assessment and Plan (1) Fall Narrative/Plan: There is no surgical intervention planned. Recommend continued pain management , PT and resume her home care. We will sign off for now. She may f/u prn Current Visit: Yes Status: Acute Code(s): W19.XXXA - UNSPECIFIED FALL, INITIAL ENCOUNTER SNOMED Code(s): 4114884 (2) Hip injury Current Visit: Yes Status: Acute Code(s): S79.919A - UNSPECIFIED INJURY OF UNSPECIFIED HIP, INITIAL ENCOUNTER SNOMED Code(s): 206375594 (3) Unable to ambulate Current Visit: Yes Status: Acute Code(s): R26.2 - DIFFICULTY IN WALKING, NOT ELSEWHERE CLASSIFIED SNOMED Code(s): 321264029 (4) Abdominal pain Current Visit: No Status: Acute Code(s): R10.9 - UNSPECIFIED ABDOMINAL PAIN SNOMED Code(s): 10650611 (5) Acute sinusitis Current Visit: No Status: Acute Code(s): J01.90 - ACUTE SINUSITIS, UNSPECIFIED SNOMED Code(s): 99264199 (6) Anemia Current Visit: No Status: Acute Code(s): D64.9 - ANEMIA, UNSPECIFIED SNOMED Code(s): 269705207 (7) Back pain Current Visit: No Status: Acute Code(s): M54.9 - DORSALGIA, UNSPECIFIED SNOMED Code(s): 275408799 (8) Chest pain Current Visit: No Status: Acute Code(s): R07.9 - CHEST PAIN, UNSPECIFIED SNOMED Code(s): 17059413 (9) Lung cancer Current Visit: No Status: Acute Code(s): C34.90 - MALIGNANT NEOPLASM OF UNSP PART OF UNSP BRONCHUS OR LUNG SNOMED Code(s): 622801844
[2018-01-07 11:17] LABS: Glucose,Whole Blood 158 mg/dL (75-99)
[2018-01-07] MEDS ORDERED: DOCUSATE 100 MG CAP PO SCH (11:45)
[2018-01-07 13:49] VITALS: BP 138/63; PULSE 89; RESP 14; TEMP 98.3
--- NOTE | 2018-01-07 19:00 | PN ---
PROGRESS NOTE DATE OF SERVICE: 01/06/2018 CHIEF COMPLAINT: Fall with left hip pain. HISTORY OF PRESENT ILLNESS: This lady is complaining of generalized abdominal pain. She has had no vomiting. She has had no fever or chills. PHYSICAL EXAMINATION: Chest is clear. Cardiac exam is normal. She seems to be slightly tender in the abdomen throughout, but bowel sounds are present and there are no masses. IMPRESSION: 1. Fall with left hip pain. 2. Abdominal pain. 3. Carcinoma of the lung. PLAN: Continue to monitor her today and if her abdominal pain continues or she has other difficulty, it will be worked up. MMODL / IJN: [id number] /
--- NOTE | 2018-01-07 20:33 | DS ---
DISCHARGE SUMMARY CHIEF COMPLAINT: Pain in the left hip. HISTORY OF PRESENT ILLNESS AND PHYSICAL EXAM: Details of this lady's history and physical can be found in the initial workup. LABORATORY STUDIES: While she was in a hospital, she had laboratory studies, details which can be found in the laboratory section of her chart. COURSE IN HOSPITAL: After admission she was placed on bedrest, started on intravenous fluids and seen by Orthopedics. She was not found to have any structural damage to the left hip prosthesis. Family made arrangements for her to go to hospice and she will be discharged there on the . FINAL DIAGNOSES: 1. Trauma and fall with contusion of the left hip. 2. Chronic obstructive pulmonary disease. 3. Type 2 diabetes mellitus. 4. Carcinoma of the lung. OPERATIONS: None. CONSULTATION: Orthopedics. She is improved. MMODL / IJN: [id number] /
== END 2018-01-07 16:10 | disposition hospice, inpatient (51) ==
LOC: EC 05:48 → 5MS5E 08:40 → INTOOBSV 08:40 → 5MS5E 08:57
PROVIDERS: ADMIT Family Medicine; ATTEND Family Medicine
DX: S70.02XA Contusion of left hip, initial encounter (principal); J44.9 Chronic obstructive pulmonary disease, unspecified; E11.9 Type 2 diabetes mellitus without complications; C34.11 Malignant neoplasm of upper lobe, right bronchus or lung; I10 Essential (primary) hypertension; F03.90 Unspecified dementia, unspecified severity, without behavioral disturbance, psychotic disturbance, mood disturbance, and anxiety; M19.90 Unspecified osteoarthritis, unspecified site; K57.30 Diverticulosis of large intestine without perforation or abscess without bleeding; M81.0 Age-related osteoporosis without current pathological fracture; G89.29 Other chronic pain; M54.40 Lumbago with sciatica, unspecified side; R10.84 Generalized abdominal pain; N28.9 Disorder of kidney and ureter, unspecified; D64.9 Anemia, unspecified; M85.872 Other specified disorders of bone density and structure, left ankle and foot; R26.2 Difficulty in walking, not elsewhere classified; W18.30XA Fall on same level, unspecified, initial encounter; Y92.009 Unspecified place in unspecified non-institutional (private) residence as the place of occurrence of the external cause; Z79.84 Long term (current) use of oral hypoglycemic drugs; Z79.899 Other long term (current) drug therapy; Z79.891 Long term (current) use of opiate analgesic; Z88.5 Allergy status to narcotic agent; Z88.0 Allergy status to penicillin; Z88.2 Allergy status to sulfonamides; Z88.7 Allergy status to serum and vaccine; Z88.8 Allergy status to other drugs, medicaments and biological substances; Z87.01 Personal history of pneumonia (recurrent); Z87.440 Personal history of urinary (tract) infections; Z87.442 Personal history of urinary calculi; Z86.19 Personal history of other infectious and parasitic diseases; Z87.81 Personal history of (healed) traumatic fracture; Z90.49 Acquired absence of other specified parts of digestive tract; Z87.891 Personal history of nicotine dependence; Z90.89 Acquired absence of other organs; Z96.652 Presence of left artificial knee joint; Z96.611 Presence of right artificial shoulder joint; Z90.710 Acquired absence of both cervix and uterus; Z98.1 Arthrodesis status; Z84.1 Family history of disorders of kidney and ureter; Z80.9 Family history of malignant neoplasm, unspecified
CPT/HCPCS: 96376 ×2; 96361 ×2; 96375; 96374; 99285; 51702; 83036; 73502; 73560; 73610; G0378 ×3; J3010; J1170 ×2